=== PATIENT | male | born 1990 | race Asian ===

== ENCOUNTER 2017-10-12 21:14 | Emergency (ER) | payer OTHER, MEDICAID, SELFPAY ==
[2017-10-12 21:21] VITALS: BP 114/78; PULSE 85; RESP 14; TEMP 36.3; O2SAT 100
[2017-10-12 23:13] VITALS: BP 92/66; PULSE 77; RESP 14; O2SAT 96
[2017-10-12 23:49] LABS: Add Manual Diff / Slide Review NO; Basophils Percent Auto 0.1 % (0-2); Eosinophils Percent Auto 0.1 % (2-4); Hematocrit 42.8 % (41-53); Hemoglobin 14.6 g/dL (13.5-17.5); Lymphocytes Percent Auto 11.3 % (25-40); Mean Corpuscular HGB Conc 34.2 % (30-36); Mean Corpuscular Hemoglobin 30.4 PG (26-34); Mean Corpuscular Volume 88.8 fL (80-100); Monocytes Percent Auto 9.2 % (3-14); Neutrophils Absolute Auto 3500 /uL (3000-5900); Neutrophils Percent Auto 79.3 % (50-75); Platelet Count 151 X10^3/uL (150-400); Red Blood Cell Count 4.81 X10^6/uL (4.5-5.9); Red Cell Distribution Width 13.6 % (11.6-14.8); White Blood Cell Count 4.5 X10^3/uL (4.5-11.0)
[2017-10-12 23:50] LABS: INR 1.1 (0.9-1.3); Prothrombin Time 11.8 SECONDS (10.1-12.7)
[2017-10-12 23:53] LABS: PTT Partial Thromboplastin Tim 26 SECONDS (26.4-36.2)
[2017-10-12] MEDS: SODIUM CHLORIDE 0.9% 1,000 ML 1000 ML IV (23:55)
[2017-10-12] MEDS: ONDANSETRON 4 MG/2 ML INJ IV (23:55)
[2017-10-12 23:57] LABS: Alanine Aminotransferase 196 IU/L (21-72); Albumin Globulin Ratio 1.5 (1.0-2.8); Alkaline Phosphatase 116 U/L (38-126); Aspartate Aminotransferase 135 IU/L (17-59); BUN Creatinine Ratio 11.4 (6-22); Bilirubin Total 0.4 mg/dL (0.2-1.3); Calcium 8.9 mg/dL (8.4-10.2); Estimated Glomerular Filt Rate > 60.0 mL/min (>60); Globulin 2.7 g/dL (1.7-4.1); Glucose 91 mg/dL (70-100); HEMOLYSIS < 15 (0-50); Lipase 43 U/L (23-300); Potassium 3.9 mmol/L (3.4-5.1); Sodium 143 mmol/L (137-145); Total Protein 6.7 g/dL (6.3-8.2)
[2017-10-13 00:06] VITALS: BP 112/83; PULSE 74; RESP 16; O2SAT 100
--- NOTE | 2017-10-13 00:37 | ED_ITS ---
HPI - Nausea/Vomiting/Diarrhea General Chief complaint: Nausea/Vomiting/Diarrhea Stated complaint: STOMACH ISSUES, COUGH Time Seen by Provider: 10/13/17 00:22 Source: patient and family Mode of arrival: ambulatory Limitations: no limitations History of Present Illness HPI Narrative: Patient is a 27-year-old male who presents with multiple episodes of diffuse watery diarrhea. Says it started today around 6:00 a.m.. He got some at abdominal cramping. He feels nauseated at times but no vomiting. No fever or chills. He denies any recent travel or camping. He works from home has not been exposed to anything. MD complaint: diarrhea Related Data Previous Rx's Medication Instructions Recorded ondansetron [Zofran ODT] 4 mg PO Q6H #10 tab 10/13/17 Allergies Allergy/AdvReac Type Severity Reaction Status Date / Time No Known Drug Allergies Allergy Verified 10/12/17 21:24 Review of Systems Review of Systems All systems reviewed & are unremarkable except as noted in HPI and below Constitutional Denies chills, Denies fever(s), Denies lethargy and Denies weakness Cardiovascular Denies chest pain, Denies irregular heart rhythm, Denies lightheadedness, Denies palpitations, Denies dyspnea, Denies dyspnea on exertion and Denies orthopnea Respiratory Denies cough, Denies dyspnea, Denies dyspnea on exertion and Denies wheezing Gastrointestinal Gastrointestinal: Reports system reviewed and no additional complaints, except as docu Musculoskeletal Denies back pain, Denies muscle weakness, Denies numbness and Denies tingling Integumentary/Breasts Denies pruritus, Denies erythema, Denies rash and Denies wounds Neurologic Denies numbness, Denies tingling and Denies weakness Endocrine Denies palpitations Allergic/Immunologic Denies wheezing PFSH Medical History Patient denies medical problems (Acute) Family History Father Age: 51 H/O knee surgery Social History Smoking Status: Never smoker Exam Narrative Exam Narrative: GENERAL: The weak young male HEENT: Head atraumatic,EOMI, pupils reactive, face symmetric, dry mucous membranes CARDIOVASCULAR: Regular rate and rhythm without murmurs, rubs or gallops. RESPIRATORY: Breath sounds equal bilaterally, no wheezes rales or rhonchi. ABDOMEN: Soft, nontender. Normoactive bowel sounds all 4 quadrants. No guarding or rebound. : No CVA tenderness EXTREMITIES: Normal range of motion, no clubbing or edema. Neurovascularly intact NEUROLOGICAL: Alert and oriented x4.Normal gait and speech. Cranial nerves II through XII grossly intact. [Good [id number], good bdlf-qu-[id number], strength equal bilaterally, no dysarthria or aphasia, sensation in tact to soft touch bilaterally, no visual changes, no facial droop] SKIN: Warm, dry, no laceration, no petechiae, no rashes or lesions. Initial Vital Signs Initial Vital Signs: Vital Signs Temperature 97.4 F L 10/12/17 21:21 Pulse Rate 85 10/12/17 21:21 Respiratory Rate 14 10/12/17 21:21 Blood Pressure 114/78 10/12/17 21:21 Pulse Oximetry 100 10/12/17 21:21 Course Orders Ordered: ED Orders 10/12/17 23:22 EKG-12 Lead Stat 10/12/17 23:37 Complete Blood Count AUTO DIFF Stat Comprehensive Metabolic Panel Stat Lipase Stat Partial Thromboplastin Time Stat Prothrombin Time INR Stat 10/13/17 00:00 Hepatitis Acute Panel Stat 10/13/17 00:01 GI Panel Stat 10/13/17 01:13 Stool Culture Stat Discontinued Medications Sodium Chloride (Normal Saline 0.9%) 1,000 mls @ 1,000 mls/hr IV BOLUS ONE Stop: 10/13/17 00:20 Last Infusion: 10/13/17 01:02 Dose: 0 mls/hr Admin: 10/12/17 23:55 Dose: 1,000 mls/hr Sodium Chloride (Normal Saline 0.9%) 1,000 mls @ 1,000 mls/hr IV BOLUS ONE Stop: 10/13/17 01:34 Last Admin: 10/13/17 01:03 Dose: 1,000 mls/hr Ondansetron HCl (Zofran) 4 mg IV NOW ONE Stop: 10/12/17 23:22 Last Admin: 10/12/17 23:55 Dose: 4 mg Vital Signs - 8 hr 10/12/17 23:13 10/13/17 00:06 10/13/17 01:00 Pulse Rate 77 74 80 Respiratory Rate 14 16 14 Blood Pressure [Right Arm] 92/66 112/83 H 95/69 Pulse Oximetry 96 100 98 10/13/17 01:22 Pulse Rate 80 Respiratory Rate 20 Blood Pressure [Right Arm] 95/69 Pulse Oximetry 97 MDM - Nausea/Vomiting/Diarrhea Differential Diagnosis Likely traveler's diarrhea, food poisoning, gastroenteritis and dehydration Lab Data Attestation: I reviewed the patient's lab results. Result diagrams: 10/12/17 23:37 10/12/17 23:37 Lab Results 10/12/17 10/12/17 10/12/17 Range/Units 23:37 23:37 23:37 WBC 4.5 (4.5-11.0) X10^3/uL RBC 4.81 (4.5-5.9) X10^6/uL Hgb 14.6 (13.5-17.5) g/dL Hct 42.8 (41-53) % MCV 88.8 (80-100) fL MCH 30.4 (26-34) PG MCHC 34.2 (30-36) % RDW 13.6 (11.6-14.8) % Plt Count 151 (150-400) X10^3/uL Neut % (Auto) 79.3 H (50-75) % Lymph % (Auto) 11.3 L (25-40) % Shasta % (Auto) 9.2 (3-14) % Eos % (Auto) 0.1 L (2-4) % Baso % (Auto) 0.1 (0-2) % Neut # (Auto) 3500 (0295-3646) /uL PT 11.8 (10.1-12.7) SECONDS INR 1.1 (0.9-1.3) APTT 26 L (26.4-36.2) SECONDS Sodium 143 (137-145) mmol/L Potassium 3.9 (3.4-5.1) mmol/L Chloride 103.0 (98-107) mmol/L Carbon Dioxide 28.0 (22-32) mmol/L BUN 8.0 L (9-20) mg/dL Creatinine 0.70 (0.66-1.25) mg/dL Estimated GFR > 60.0 (>60) mL/min BUN/Creatinine Ratio 11.4 (6-22) Glucose 91 (70-100) mg/dL Calcium 8.9 (8.4-10.2) mg/dL Total Bilirubin 0.4 (0.2-1.3) mg/dL AST 135 H (17-59) IU/L ALT 196 H (21-72) IU/L Alkaline Phosphatase 116 (38-126) U/L Total Protein 6.7 (6.3-8.2) g/dL Albumin 4.0 (3.5-5.0) g/dL Globulin 2.7 (1.7-4.1) g/dL Albumin/Globulin Ratio 1.5 (1.0-2.8) Lipase 43 (23-300) U/L Stool Aeromonas Cult (Not Detect) Stl C. cayetanensis PCR (Not Detect) Stool Rotavirus (PCR) (Not Detect) Stool Adenovirus (PCR) (Not Detect) Stool Astrovirus (PCR) (Not Detect) Stool Cryptosporidium PCR (Not Detect) Stl E.coli Shiga Tox PCR (Not Detect) St Sh/Enteroin Ecoli PCR (Not Detect) Stool E coli O157 PCR Stl Enterotoxigenic E PCR (Not Detect) Stool EPEC (PCR) (Not Detect) Stl E. histolytica PCR (Not Detect) Stool Giardia Lamblia PCR (Not Detect) Stl P. shigelloides PCR (Not Detect) St Y.enterocolitica PCR (Not Detect) Stool Vibrio (PCR) (Not Detect) Stl Vibrio cholerae PCR (Not Detect) Stl Enteroaggr Ecoli PCR (Not Detect) Stl Norovirus GI/GII PCR (Not Detect) Campylobacter (PCR) (Not Detect) C. difficile Tox (PCR) (Not Detect) Salmonella (PCR) (Not Detect) 10/13/17 Range/Units 00:01 WBC (4.5-11.0) X10^3/uL RBC (4.5-5.9) X10^6/uL Hgb (13.5-17.5) g/dL Hct (41-53) % MCV (80-100) fL MCH (26-34) PG MCHC (30-36) % RDW (11.6-14.8) % Plt Count (150-400) X10^3/uL Neut % (Auto) (50-75) % Lymph % (Auto) (25-40) % Shasta % (Auto) (3-14) % Eos % (Auto) (2-4) % Baso % (Auto) (0-2) % Neut # (Auto) (0050-2957) /uL PT (10.1-12.7) SECONDS INR (0.9-1.3) APTT (26.4-36.2) SECONDS Sodium (137-145) mmol/L Potassium (3.4-5.1) mmol/L Chloride (98-107) mmol/L Carbon Dioxide (22-32) mmol/L BUN (9-20) mg/dL Creatinine (0.66-1.25) mg/dL Estimated GFR (>60) mL/min BUN/Creatinine Ratio (6-22) Glucose (70-100) mg/dL Calcium (8.4-10.2) mg/dL Total Bilirubin (0.2-1.3) mg/dL AST (17-59) IU/L ALT (21-72) IU/L Alkaline Phosphatase (38-126) U/L Total Protein (6.3-8.2) g/dL Albumin (3.5-5.0) g/dL Globulin (1.7-4.1) g/dL Albumin/Globulin Ratio (1.0-2.8) Lipase (23-300) U/L Stool Aeromonas Cult Awaiting culture res (Not Detect) Stl C. cayetanensis PCR Not detected (Not Detect) Stool Rotavirus (PCR) Not detected (Not Detect) Stool Adenovirus (PCR) Not detected (Not Detect) Stool Astrovirus (PCR) Detected H (Not Detect) Stool Cryptosporidium PCR Not detected (Not Detect) Stl E.coli Shiga Tox PCR Not detected (Not Detect) St Sh/Enteroin Ecoli PCR Not detected (Not Detect) Stool E coli O157 PCR Not Reportable Stl Enterotoxigenic E PCR Not detected (Not Detect) Stool EPEC (PCR) Not detected (Not Detect) Stl E. histolytica PCR Not detected (Not Detect) Stool Giardia Lamblia PCR Not detected (Not Detect) Stl P. shigelloides PCR Not detected (Not Detect) St Y.enterocolitica PCR Not detected (Not Detect) Stool Vibrio (PCR) Not detected (Not Detect) Stl Vibrio cholerae PCR Not detected (Not Detect) Stl Enteroaggr Ecoli PCR Detected H (Not Detect) Stl Norovirus GI/GII PCR Not detected (Not Detect) Campylobacter (PCR) Not detected (Not Detect) C. difficile Tox (PCR) Not detected (Not Detect) Salmonella (PCR) Not detected (Not Detect) MDM Narrative Medical decision making narrative: The patient only had 1 episode of diarrhea while in the ED. He is tolerating oral fluids. His stool culture is positive for E coli which is not hemorrhagic and gastro virus. At this time no antibiotics are indicated. Discussed treatment plan and symptomatic conservative treatment with patient. He agrees and he understands. All questions have been addressed. Discharge Plan Departure Patient Disposition: Home, Self-Care Clinical Impression: Gastroenteritis, Abnormal liver enzymes Discharge Date/Time: 10/13/17 02:06 Interventions: ED Discharge Assessment Last Done: 10/13/17 02:05 Instructions: DI for Viral Gastroenteritis -- Adult, DI for Bacterial Gastroenteritis -- Adult Activity Restrictions/Additional Instructions: *You have been diagnosed with gastroenteritis *What to do: Increase fluid intake with Gatorade or Gatorade like substance, diarrhea should start to slow down *Take medications as directed -Zofran every 4-6 hours if needed for nausea or vomiting *Follow up with your primary care provider in 2-3 days *Return to ER if you should have bloody stool, increase to stool or vomiting inability to tolerate fluids or any new, worsening or concerning symptoms Prescriptions: New ondansetron [Zofran ODT] 4 mg tablet,disintegrating 4 mg PO Q6H Qty: 10 RF: 0 Stand Alone Forms: Work/School Restrictions
[2017-10-13 01:00] VITALS: BP 95/69; PULSE 80; RESP 14; O2SAT 98
[2017-10-13] MEDS: SODIUM CHLORIDE 0.9% 1,000 ML 1000 ML IV (01:03)
[2017-10-13 01:22] VITALS: BP 95/69; PULSE 80; RESP 20; O2SAT 97
[2017-10-13 01:32] LABS: Campylobacter Not Detected (Not Detect); Clostridium difficile toxin AB Not Detected (Not Detect); Enteroaggregative E.coli Detected (Not Detect); Enteropathogenic E.coli Not Detected (Not Detect); Enterotoxigenic E.coli It/st Not Detected (Not Detect); Plesiomonsa shigelloides Not Detected (Not Detect); Salmonella Not Detected (Not Detect); Shiga-like toxin-prod E.coli Not Detected (Not Detect); Vibrio Not Detected (Not Detect); Vibrio cholerae Not Detected (Not Detect); Yersinia enterocolitica Not Detected (Not Detect)
[2017-10-13 01:33] LABS: Adenovirus F 40/41 Not Detected (Not Detect); Astrovirus Detected (Not Detect); Cryptosporidium Not Detected (Not Detect); Cyclospora cayetanensis Not Detected (Not Detect); Entamoeba histolytica Not Detected (Not Detect); Giardia lamblia Not Detected (Not Detect); Norovirus GI/GII Not Detected (Not Detect); Rotavirus A Not Detected (Not Detect); Shigella/Enteroinvasive E.coli Not Detected (Not Detect)
[2017-10-17 10:40] LABS: Hepatitis A Antibody IgM NONREACTIVE; Hepatitis Acute Panel Interp 0.01; Hepatitis B Core Antibody IgM NONREACTIVE; Hepatitis B Surface Antigen NONREACTIVE; Hepatitis C Antibody NONREACTIVE
== END 2017-10-13 02:06 | disposition home or self-care (01) ==
PROVIDERS: Emergency Provider Emergency Medicine; PCP Family Medicine
DX: K52.9 Noninfective gastroenteritis and colitis, unspecified (principal); R74.8 Abnormal levels of other serum enzymes
CPT/HCPCS: 36591; 80053; 80074; 81003; 83690; 85025; 85610; 85730; 87507; 93005; 96361; 96374; 99284; J2405

== ENCOUNTER → 2017-10-17 16:57 | Outpatient (CLI) | payer OTHER, MEDICAID, SELFPAY ==
[2017-10-17 19:10] LABS: Alanine Aminotransferase 192 IU/L (21-72); Aspartate Aminotransferase 46 IU/L (17-59)
== END ==
PROVIDERS: PCP Family Medicine; Visit Provider Family Medicine
DX: K52.9 Noninfective gastroenteritis and colitis, unspecified (principal); R74.8 Abnormal levels of other serum enzymes
CPT/HCPCS: 36415; 84450; 84460

== ENCOUNTER → 2018-02-02 11:13 | Outpatient (CLI) | payer OTHER, MEDICAID, SELFPAY ==
[2018-02-02 12:23] LABS: Add Manual Diff / Slide Review NO; Basophils Percent Auto 0.5 % (0-2); Eosinophils Percent Auto 1.1 % (2-4); Hematocrit 42.4 % (41-53); Hemoglobin 14.2 g/dL (13.5-17.5); Lymphocytes Percent Auto 28.5 % (25-40); Mean Corpuscular HGB Conc 33.5 % (30-36); Mean Corpuscular Hemoglobin 30.3 PG (26-34); Mean Corpuscular Volume 90.3 fL (80-100); Monocytes Percent Auto 9.7 % (3-14); Neutrophils Absolute Auto 2200 /uL (3000-5900); Neutrophils Percent Auto 60.2 % (50-75); Platelet Count 200 X10^3/uL (150-400); Red Cell Distribution Width 13.6 % (11.6-14.8); White Blood Cell Count 3.6 X10^3/uL (4.5-11.0)
[2018-02-02 12:55] LABS: Alanine Aminotransferase 89 IU/L (21-72); Aspartate Aminotransferase 77 IU/L (17-59)
[2018-02-02 13:04] LABS: C-Reactive Protein Quant < 0.5 mg/dL (<1.0)
== END ==
PROVIDERS: Registered Nurse; PCP Family Medicine; Visit Provider Family Medicine
DX: K58.9 Irritable bowel syndrome, unspecified (principal); R74.8 Abnormal levels of other serum enzymes
CPT/HCPCS: 36415; 84450; 84460; 85025; 86140

== ENCOUNTER 2018-06-05 13:31 | Emergency (ER) | payer SELFPAY ==
[2018-06-05 13:45] VITALS: BP 105/72; PULSE 68; RESP 14; TEMP 36.7; O2SAT 98; BMI 22.3
--- NOTE | 2018-06-05 14:11 | PC.NURSE ---
Pt has been coughing frequently for 1 week. Has roommate with similar symptoms. Denies fever, chills, or any other symptoms. He has vomited yesterday, due to coughing so hard. Denies nausea. Talking in full sentences, no increased work of breathing noted.
--- NOTE | 2018-06-05 14:52 | ED_ITS ---
HPI - URI/Sore Throat <Oneida Fung PA-C - Last Filed: 06/05/18 22:05> General Chief Complaint: Upper Respiratory Symptoms Stated Complaint: COUGH, THROWING UP, CHEST TIGHT W/COUGH Time Seen by Provider: 06/05/18 15:01 Source: patient Mode of arrival: ambulatory Limitations: no limitations History of Present Illness HPI Narrative: This 28-year-old male comes in due to one-week history of dry cough. He states that he coughs so hard at times he has dry heaves or vomits if he tries to drink water. He states that it is hard to breathe during coughing spells, otherwise he denies any dyspnea. He does not have any ongoing nausea or vomiting. He states his abdominal muscles are sore from coughing, not having any chest pain. He denies any wheeze. He denies any fever, chills, sweats. He denies any sinus symptoms, earache, sore throat or body aches. He states that his roommate had similar symptoms prior to his developing this cough. Related Data Previous Rx's Medication Instructions Recorded promethazine-codeine 5 ml PO Q6H PRN #118 ml 06/05/18 Allergies Allergy/AdvReac Type Severity Reaction Status Date / Time No Known Drug Allergies Allergy Verified 06/05/18 13:48 Review of Systems <SHAWNA Beckwith Last Filed: 06/05/18 22:05> Review of Systems All systems reviewed & are unremarkable except as noted in HPI and below PFSH <SHAWNA Beckwith Last Filed: 06/05/18 22:05> Comment: Moderate EtOH Exam <SHAWNA Beckwith Last Filed: 06/05/18 22:05> Narrative Exam Narrative: GENERAL APPEARANCE: Patient sleeping comfortably HEAD: No sinus TTP. EYES: PERRL, EOMI. EARS: Normal auditory canals, TMS intact with normal light reflexes. ORAL CAVITY: Normal oropharynx. THROAT: Clear. NECK/THYROID: Neck supple, full range of motion, no cervical lymphadenopathy. LUNGS: Clear to auscultation bilaterally, no cough on exam. HEART: RRR without murmur, nl S1, S2, no S3 or S4. DERMATOLOGIC: No exanthem Initial Vital Signs Initial Vital Signs: Vital Signs Temperature 98.0 F 06/05/18 13:45 Pulse Rate 68 06/05/18 13:45 Respiratory Rate 14 06/05/18 13:45 Blood Pressure 105/72 06/05/18 13:45 Pulse Oximetry 98 06/05/18 13:45 <Mignon Fraga DO - Last Filed: 06/09/18 08:09> Initial Vital Signs Initial Vital Signs: Vital Signs Temperature 98.0 F 06/05/18 13:45 Pulse Rate 68 06/05/18 13:45 Respiratory Rate 14 06/05/18 13:45 Blood Pressure 105/72 06/05/18 13:45 Pulse Oximetry 98 06/05/18 13:45 Course <Oneida Fung PA-C - Last Filed: 06/05/18 22:05> Additional Information: Patient is comfortably while here. Advised likely viral infection given his roommate had similar symptoms prior, and should avoid exposures in working until cough is resolved. Also advised given some post- tussive vomiting episode if symptoms persist he does need to follow up with his PCP and consider testing for pertussis. Vital Signs - 8 hr 06/05/18 15:26 Pulse Rate 65 Respiratory Rate 16 Blood Pressure 136/93 H Pulse Oximetry 97 <Mignon Fraga DO - Last Filed: 06/09/18 08:09> Vital Signs - 8 hr 06/05/18 15:26 Pulse Rate 65 Respiratory Rate 16 Blood Pressure 136/93 H Pulse Oximetry 97 Discharge Plan Departure Patient Disposition: Home Clinical Impression: Bronchitis Discharge Date/Time: 06/05/18 15:30 Interventions: ED Discharge Assessment Last Done: 06/05/18 15:26 Instructions: DI for Acute Bronchitis Activity Restrictions/Additional Instructions: The vast majority of coughs like this (bronchitis, or chest cold) are viruses, and 10 to get better on their own within 10-14 days. Please stay off of work until your cough is better as you could spread the infection. I have given you a prescription for cough syrup to help you get some rest and sleep. You can take that as needed, but do not drive. Also add [id number] cetirizine ( Zyrtec) 10 mg once daily to help with drainage which may increase your cough. You should return if you have acutely worsening symptoms, as we talked about. Otherwise, please follow-up with your PCP if you are not getting better within the next week as she may want to test you for pertussis. Prescriptions: New promethazine-codeine 6.25-10 mg/5 mL syrup 5 ml PO Q6H PRN (Reason: cough) Qty: 118 RF: 0 Referrals: Chantelle Hall MD [Primary Care Provider] - Stand Alone Forms: Work Release Note <Mignon Fraga DO - Last Filed: 06/09/18 08:09> Cosign ED Attending Almaature Attestation: I was immediately available in the department for consultation. Documentation has been reviewed. I agree with assessment and plan.
[2018-06-05 15:26] VITALS: BP 136/93; PULSE 65; RESP 16; O2SAT 97
== END 2018-06-05 15:30 | disposition home or self-care (01) ==
PROVIDERS: Emergency Provider Internal Medicine; PCP Family Medicine
DX: J40 Bronchitis, not specified as acute or chronic (principal)
CPT/HCPCS: 99282

== ENCOUNTER 2018-08-20 02:01 | Emergency (ER) | payer SELFPAY ==
[2018-08-20 02:10] VITALS: BP 106/66; PULSE 65; RESP 18; TEMP 36.9; O2SAT 98; BMI 20.9
--- NOTE | 2018-08-20 02:12 | ED_ITS ---
HPI - Extremity Injury (Lower) General Chief Complaint: Extremity Injury, Lower Stated Complaint: missed step and twisted right ankle Time Seen by Provider: 08/20/18 02:04 Source: patient Mode of arrival: wheelchair Limitations: no limitations History of Present Illness HPI Narrative: Otherwise healthy 28-year-old male here for evaluation of right ankle injury. Patient states that he was at a restaurant when he was walking off the dance floor and missed a step. He stated that he rolled his right ankle. Was able to ambulate on afterwards however had quite a bit of discomfort. Minimal swelling. Related Data Previous Rx's Medication Instructions Recorded promethazine-codeine 5 ml PO Q6H PRN #118 ml 06/05/18 Allergies Allergy/AdvReac Type Severity Reaction Status Date / Time No Known Drug Allergies Allergy Verified 06/05/18 13:48 Review of Systems Constitutional Denies fever(s) Musculoskeletal Denies tingling Comments: Right ankle pain Integumentary/Breasts Denies rash Neurologic Denies tingling Hematologic/Lymphatic Denies easy bleeding and Denies easy bruising [facility] Medical History Chronic back pain (Chronic 2003) Shoulder pain (Chronic 2004) Social History Smoking Status: Never smoker Exam Initial Vital Signs Initial Vital Signs: Vital Signs Temperature 98.4 F 08/20/18 02:10 Pulse Rate 65 08/20/18 02:10 Respiratory Rate 18 08/20/18 02:10 Blood Pressure 106/66 08/20/18 02:10 Pulse Oximetry 98 08/20/18 02:10 Const General: cooperative, healthy appearing, comfortable, well developed, well groomed and No acute distress Orientation: alert, awake and oriented x3 HENMT Head: normal to inspection and normocephalic Resp Effort & Inspection: normal respiratory effort Cardio Pulses: dorsalis pedis present on the right Skin Lesions: no lesions Rashes: no rashes Neuro Sensory Exam: no sensory deficits noted Extrem Other: No proximal fibular tenderness. Has tenderness to palpation on the lateral malleolus and the lateral aspect of the right foot. Course Orders Ordered: ED Orders 08/20/18 02:13 XR ankle RT min 3V Stat Vital Signs - 8 hr 08/20/18 02:10 Temperature 98.4 F Pulse Rate 65 Respiratory Rate 18 Blood Pressure 106/66 Pulse Oximetry 98 MDM - Extremity Injury (Lower) Imaging Data Ankle x-ray: Attestation: I personally reviewed and interpreted this imaging study as follows: My impression: No fractures, no dislocations, no acute pathology MDM Narrative Medical decision making narrative: Neurovascularly intact. Patient did not want an Jorge L bandage. Was not placed in a splint. Was given crutches for comfort. Was given care instructions return precautions. He expressed understanding and agreement with plan. Discharge Plan Departure Patient Disposition: Home Clinical Impression: Ankle sprain and strain Instructions: DI for Ankle Sprain Activity Restrictions/Additional Instructions: The crutches are for your comfort. You can put pressure on your foot. Keep your foot elevated as much as possible. There could be some bruising around your ankle or on her foot. This happens it is normal. Contact her primary care doctor for follow-up. Prescriptions: No Action promethazine-codeine 6.25-10 mg/5 mL syrup 5 ml PO Q6H PRN (Reason: cough) Qty: 118 RF: 0 Referrals: Chantelle Hall MD [Primary Care Provider] -
--- NOTE | 2018-08-20 02:13 | DI.RAD.S_ITS ---
PROCEDURE: XR ANKLE RT MIN 3V INDICATIONS: Lateral pain after injury TECHNIQUE: 3 views of the ankle were acquired. COMPARISON: None. FINDINGS: Bones: No fractures or dislocations. Ankle mortise is normally aligned. No suspicious bony lesions. Soft tissues: Small tibiotalar joint effusion. Achilles tendon appears normal. IMPRESSION: 1. No fractures. 2. Small tibiotalar joint effusion. Dictated by: Carlee Spencer M.D. on 08/20/2018 at 7:59 Approved by: Carlee Spencer M.D. on 08/20/2018 at 8:00
== END 2018-08-20 02:50 | disposition home or self-care (01) ==
PROVIDERS: Emergency Provider Emergency Medicine; PCP Family Medicine
DX: S93.401A Sprain of unspecified ligament of right ankle, initial encounter (principal)
CPT/HCPCS: 73610; 99282; 99283

== ENCOUNTER 2018-12-30 01:18 | Emergency (ER) | payer SELFPAY ==
[2018-12-30 01:27] VITALS: BP 115/75; PULSE 65; RESP 15; TEMP 36.8; O2SAT 95; BMI 21.3
[2018-12-30] MEDS: ONDANSETRON 4 MG/2 ML INJ IV (01:45)
[2018-12-30] MEDS: SODIUM CHLORIDE 0.9% 1,000 ML 1000 ML IV (01:45)
[2018-12-30] MEDS: PANTOPRAZOLE 40 MG VIAL IV (01:47)
[2018-12-30 01:59] LABS: Add Manual Diff / Slide Review NO; Basophils Absolute Auto 0 /uL (0-100); Basophils Percent Auto 0.6 % (0-2); Eosinophils Absolute Auto 0 /uL (0-450); Eosinophils Percent Auto 0.6 % (2-4); Hematocrit 41.9 % (41-53); Hemoglobin 14.2 g/dL (13.5-17.5); Lymphocytes Absolute Auto 1500 /uL (1100-4500); Lymphocytes Percent Auto 32.6 % (25-40); Mean Corpuscular HGB Conc 33.9 % (30-36); Mean Corpuscular Hemoglobin 30.2 PG (26-34); Mean Corpuscular Volume 89.1 fL (80-100); Monocytes Absolute Auto 400 /uL (0-900); Monocytes Percent Auto 8.7 % (3-14); Neutrophils Absolute Auto 2700 /uL (1500-7000); Neutrophils Percent Auto 57.5 % (50-75); Platelet Count 206 X10^3/uL (150-400); Red Cell Distribution Width 13.7 % (11.6-14.8); White Blood Cell Count 4.7 X10^3/uL (4.5-11.0)
[2018-12-30 02:04] LABS: Alanine Aminotransferase 79 IU/L (21-72); Albumin 4.1 g/dL (3.5-5.0); Albumin Globulin Ratio 1.5 (1.0-2.8); Alkaline Phosphatase 54 U/L (38-126); Aspartate Aminotransferase 54 IU/L (17-59); Bilirubin Total 0.5 mg/dL (0.2-1.3); Blood Urea Nitrogen 14 mg/dL (9-20); Carbon Dioxide 29 mmol/L (22-32); Chloride 105 mmol/L (98-107); Estimated Glomerular Filt Rate > 60.0 mL/min (>60); Globulin 2.7 g/dL (1.7-4.1); Glucose 97 mg/dL (70-100); HEMOLYSIS 24 (0-50); Potassium 4.1 mmol/L (3.4-5.1); Sodium 141 mmol/L (137-145); Total Protein 6.8 g/dL (6.3-8.2)
--- NOTE | 2018-12-30 02:36 | ED_ITS ---
HPI - Abdominal Pain General Chief Complaint: Abdominal Pain Stated Complaint: states stomach problems lots of bowel movements Time Seen by Provider: 12/30/18 01:20 Source: patient and family Mode of arrival: ambulatory Limitations: no limitations History of Present Illness HPI narrative: 28M nonsmoker without significant other medical history presents with his significant other in the chief complaint of nausea, vomiting and multiple episodes of diarrhea over the past few days. He denies any recent travel, exposure to bad food or blood in his stool. He has had no fever chills. He had been on antibiotics for an infection in his leg up until recently. He is not dizzy nor weak or lightheaded MD complaint: abdominal pain Onset (ago): day(s) Pain Consistency: constant Location: diffuse Severity: moderate Quality: cramping Radiation: none Migration to: no migration Relieving factors: nothing Exacerbating factors: nothing Associated symptoms: nausea, vomiting and diarrhea Related Data Previous Rx's Medication Instructions Recorded promethazine-codeine 5 ml PO Q6H PRN #118 ml 06/05/18 Allergies Allergy/AdvReac Type Severity Reaction Status Date / Time No Known Drug Allergies Allergy Verified 06/05/18 13:48 Review of Systems Constitutional Denies chills, Denies fever(s), Denies lethargy and Denies weakness Eyes Denies change in vision, Denies eye discharge, Denies irritation and Denies loss of vision ENT Ears, Nose, Mouth, and Throat: Denies change in voice, Denies neck pain and Denies sore throat Cardiovascular Denies chest pain, Denies irregular heart rhythm, Denies lightheadedness, Denies palpitations, Denies dyspnea, Denies dyspnea on exertion and Denies orthopnea Respiratory Denies cough, Denies dyspnea, Denies dyspnea on exertion and Denies wheezing Gastrointestinal Gastrointestinal: Reports abdominal pain, Denies change in bowel habits, Reports diarrhea, Reports nausea and Reports vomiting Genitourinary Denies hematuria, Denies flank pain, Denies urinary incontinence and Denies urinary urgency Musculoskeletal Denies neck pain Integumentary/Breasts Denies pruritus, Denies erythema, Denies rash and Denies wounds Neurologic Denies confusion, Denies loss of vision and Denies weakness Psychiatric Denies anxiety, Denies confusion, Denies depression, Denies homicidal ideation and Denies suicidal ideation Endocrine Denies palpitations Hematologic/Lymphatic Denies easy bruising Allergic/Immunologic Denies wheezing PFSH Medical History Chronic back pain (Chronic 2003) Shoulder pain (Chronic 2004) Surgical History No history of previous surgery (Resolved 04/04/17) Family History Father Age: 52 H/O knee surgery Mother Stomach problems Chest problem Social History Smoking Status: Never smoker Family History Father Age: 52 H/O knee surgery Mother Stomach problems Chest problem Social History Smoking Status: Never smoker Exam Narrative Exam Narrative: GENERAL: This is a well-nourished, well-developed patient, in mild distress. HEAD: Atraumatic. Normocephalic. No temporal or scalp tenderness. EYES: Pupils equal round and reactive. Extraocular motions intact. No scleral icterus. No injection or drainage. ENT: Nose without bleeding, purulent drainage or septal hematoma. Throat without erythema, tonsillar hypertrophy or exudate. Uvula midline. Airway patent. NECK: Trachea midline. No JVD or lymphadenopathy. Supple, nontender, no menin geal signs. CARDIOVASCULAR: Regular rate and rhythm without murmurs, gallops, or rubs. RESPIRATORY: Clear to auscultation. Breath sounds equal bilaterally. No wheezes, rales, or rhonchi. GASTROINTESTINAL: Abdomen soft, non-tender, nondistended. No hepato- splenomegaly, or palpable masses. No guarding. EXTREMITIES: No clubbing, cyanosis, or edema. No joint tenderness, effusion, or edema noted. BACK: Nontender without deformity or crepitance. No flank tenderness. NEURO: AOx3. SKIN: No rash or erythema. Initial Vital Signs Initial Vital Signs: Vital Signs Temperature 98.2 F 12/30/18 01:27 Pulse Rate 65 12/30/18 01:27 Respiratory Rate 15 12/30/18 01:27 Blood Pressure 115/75 12/30/18 01:27 Pulse Oximetry 95 12/30/18 01:27 Course Orders Ordered: ED Orders 12/30/18 01:45 Complete Blood Count AUTO DIFF Stat Comprehensive Metabolic Panel Stat Ondansetron HCl (Zofran) 4 mg IV Q4HR PRN PRN Reason: Nausea And Vomiting Last Admin: 12/30/18 01:45 Dose: 4 mg Discontinued Medications Sodium Chloride (Normal Saline 0.9%) 1,000 mls @ 1,000 mls/hr IV BOLUS ONE Stop: 12/30/18 02:34 Last Infusion: 12/30/18 02:28 Dose: 0 mls/hr Admin: 12/30/18 01:45 Dose: 1,000 mls/hr Pantoprazole Sodium (Protonix) 40 mg IV NOW ONE Stop: 12/30/18 01:36 Last Admin: 12/30/18 01:47 Dose: 40 mg Reevaluation(s) Reevaluation #1: Movement yet in the department. He has no white count and no blood in his stool. C diff is considered but thought less likely given the above circumstances. Vital Signs - 8 hr 12/30/18 01:27 Temperature 98.2 F Pulse Rate 65 Respiratory Rate 15 Blood Pressure 115/75 Pulse Oximetry 95 MDM - Abdominal Pain Lab Data Result diagrams: 12/30/18 01:45 12/30/18 01:45 Lab Results 12/30/18 12/30/18 Range/Units 01:45 01:45 WBC 4.7 (4.5-11.0) X10^3/uL RBC 4.70 (4.5-5.9) X10^6/uL Hgb 14.2 (13.5-17.5) g/dL Hct 41.9 (41-53) % MCV 89.1 (80-100) fL MCH 30.2 (26-34) PG MCHC 33.9 (30-36) % RDW 13.7 (11.6-14.8) % Plt Count 206 (150-400) X10^3/uL Neut % (Auto) 57.5 (50-75) % Lymph % (Auto) 32.6 (25-40) % Wythe % (Auto) 8.7 (3-14) % Eos % (Auto) 0.6 L (2-4) % Baso % (Auto) 0.6 (0-2) % Neut # (Auto) 2700 (7626-8206) /uL Lymph # (Auto) 1500 (9432-2560) /uL Wythe # (Auto) 400 (0-900) /uL Eos # (Auto) 0 (0-450) /uL Baso # (Auto) 0 (0-100) /uL Sodium 141 (137-145) mmol/L Potassium 4.1 (3.4-5.1) mmol/L Chloride 105 (98-107) mmol/L Carbon Dioxide 29 (22-32) mmol/L BUN 14 (9-20) mg/dL Creatinine 0.70 (0.66-1.25) mg/dL Estimated GFR > 60.0 (>60) mL/min BUN/Creatinine Ratio 20.0 (6-22) Glucose 97 (70-100) mg/dL Calcium 10.0 (8.4-10.2) mg/dL Total Bilirubin 0.5 (0.2-1.3) mg/dL AST 54 (17-59) IU/L ALT 79 H (21-72) IU/L Alkaline Phosphatase 54 (38-126) U/L Total Protein 6.8 (6.3-8.2) g/dL Albumin 4.1 (3.5-5.0) g/dL Globulin 2.7 (1.7-4.1) g/dL Albumin/Globulin Ratio 1.5 (1.0-2.8) Discharge Plan Departure Patient Disposition: Home Clinical Impression: Diarrhea Instructions: Diarrhea Activity Restrictions/Additional Instructions: 1. Drink plenty of fluids with frequent small sips. 2. For the next 24 hours a clear liquid diet is advised. After that please employ a brat diet which would include bananas, rice, apples, toast. 3. Please take medications as directed. 4. Please follow-up with your doctor in the next 1-2 days. Call the office for an appointment. 5. Please return to the emergency Department for any worsening or persistent symptoms, such as increasing pain or fever. Prescriptions: No Action promethazine-codeine 6.25-10 mg/5 mL syrup 5 ml PO Q6H PRN (Reason: cough) Qty: 118 RF: 0 Referrals: Chantelle Hall MD [Primary Care Provider] -
[2018-12-30 02:51] VITALS: BP 106/69; PULSE 60; RESP 15; O2SAT 95
== END 2018-12-30 03:01 | disposition home or self-care (01) ==
PROVIDERS: Emergency Provider Emergency Medicine; PCP Family Medicine
DX: R19.7 Diarrhea, unspecified (principal)
CPT/HCPCS: 36591; 80053; 85025; 96361; 96374; 96375; 99283; 99284; C9113; J2405

== ENCOUNTER 2019-05-10 08:07 | Emergency (ER) | payer SELFPAY ==
[2019-05-10 08:12] VITALS: BP 123/86; PULSE 77; RESP 16; TEMP 36.8; O2SAT 97; BMI 24.0
--- NOTE | 2019-05-10 08:15 | ED_ITS ---
HPI - URI/Sore Throat General Chief Complaint: Upper Respiratory Symptoms Stated Complaint: TROUBLE SWALLOWING,STUFF STUCK IN THROAT Time Seen by Provider: 05/10/19 08:15 Source: patient Mode of arrival: Ambulatory Limitations: no limitations History of Present Illness HPI Narrative: 29-year-old male comes to the emergency department states he feels like something is stuck in his throat. Patient states early this morning he was eating chicken wings about 2:00 a.m. in the morning. He states about 20 minutes later he felt some irritation or pain in his chest. He states that he could really sleep all night felt irritated the whole time. He was able to drink liquids and didn't have any vomiting or difficulty keeping liquids down. He has not tried any solids as he feels like they might get stuck. He has been having these symptoms on and off since Thanksgiving what feels like things might be getting stuck but then will past. He to try drinking cold Coke a jumping on his heels but without success. He denies fevers. He denies vomiting. He denies shortness of breath. He denies any changes are new issues with bowel movements. No urinary problems. He has been taking antibiotics for a toe infection which they think might be fungal. He is otherwise healthy, no prior medical issues. No prior surgeries. Patient is not allergic to any medications. He does not smoke tobacco, occasional alcohol. No illicit. Related Data Previous Rx's Medication Instructions Recorded promethazine-codeine 5 ml PO Q6H PRN #118 ml 06/05/18 Allergies Allergy/AdvReac Type Severity Reaction Status Date / Time No Known Drug Allergies Allergy Verified 05/10/19 08:14 Review of Systems Review of Systems ROS Unobtainable: All systems reviewed & are unremarkable except as noted in HPI and below Patient History Medical History Chronic back pain (Chronic 2003) Shoulder pain (Chronic 2004) Surgical History No history of previous surgery (Resolved 04/04/17) Social History Smoking Status: Never smoker Smoking Status: Never smoker alcohol intake frequency: holidays/special occasions only Substance Use Type: does not use Exam Narrative Exam Narrative: GENERAL: Alert and oriented x three, well-nourished male in no acute distress. HEENT: Head normocephalic, atraumatic, EOMI, pupils reactive, face symmetric, moist mucous membranes NECK: Supple, full range of motion, throat is clear. Normal voice. No stridor or muffled voice. CARDIOVASCULAR: Regular rate and rhythm without murmurs, rubs or gallops. Chest is nontender to palpation. RESPIRATORY: Breath sounds equal bilaterally, no wheezes rales or rhonchi. ABDOMEN: Soft, nontender. Normoactive bowel sounds all 4 quadrants. No guarding or rebound, rigidity, no mass : No CVA tenderness EXTREMITIES: Normal range of motion, no clubbing or edema. Neurovascularly intact NEUROLOGICAL: Cranial nerves II through XII grossly intact. Moving all extremities SKIN: Warm, dry, no petechiae, no rashes or lesions. Initial Vital Signs Initial Vital Signs: Vital Signs Temperature 98.3 F 05/10/19 08:12 Pulse Rate 77 05/10/19 08:12 Respiratory Rate 16 05/10/19 08:12 Blood Pressure 123/86 05/10/19 08:12 Pulse Oximetry 97 05/10/19 08:12 Course Orders Ordered: ED Orders 05/10/19 08:28 XR chest 1V Stat Discontinued Medications Al Hydrox/Mg Hydrox/Simethicone 20 ml/ Lidocaine HCl 15 ml 0 ml PO NOW ONE Stop: 05/10/19 08:58 Last Admin: 05/10/19 09:00 Dose: 35 ml Documented by: ZOYA Vital Signs Vital signs: Vital Signs - 8 hr 05/10/19 08:12 Temperature 98.3 F Pulse Rate 77 Respiratory Rate 16 Blood Pressure 123/86 Pulse Oximetry 97 MDM - URI/Sore Throat Imaging Data Chest x-ray: Radiologist's impression: [address] [address] XRay Report Signed Patient: Lexa Gabriel KMR#: [id number] : 1990Acct:[id number] Age/Sex: 29 / MDate of Service: 05/10/19 Loc: ED Accession Number: [id number] Procedure: XR chest 1V Ordering Provider: Mank,Dione C D.O. PROCEDURE: XR CHEST 1V INDICATIONS: feels like something stuck in throat, able to swallow liquid TECHNIQUE: One view of the chest was acquired. COMPARISON: None. FINDINGS: Surgical changes and devices: None. Lungs and pleura: Lungs are clear. No pleural effusions or pneumothorax. Mediastinum: Mediastinal contours appear normal. Heart size is normal. Bones and chest wall: No suspicious bony lesions. Overlying soft tissues appear unremarkable. IMPRESSION: No acute process. Dictated by: Halie Tavera M.D. on 05/10/2019 at 9:07 Approved by: Halie Tavera M.D. on 05/10/2019 at 9:08 [facility] Narrative Medical decision making narrative: I suspect patient has irritation or abrasion of his esophagus from eating earlier this morning. Patient has not had any tro uble swallowing liquids at home. Able to eat applesauce and then a cheesestick and crackers. Patient does have some irritation with crackers and cheese stick but not difficulty keeping food down. Discussed patient needs to follow up for EGD and given referral or that he can go through primary care. Softer diet and make sure food is well masticated. Patient and family comfortable with plan. Nilson montgomery give a single GI cocktail for comfort. Discharge Plan Departure Patient Disposition: Home Clinical Impression: Esophageal abrasion Discharge Date/Time: 05/10/19 09:29 Instructions: Steakhouse Syndrome Activity Restrictions/Additional Instructions: Follow up with primary care or general surgery for follow up and EGD to evaluate for strictures or narrowing of the esophagus. I would recommend a softer diet and making sure that you chewing her food fully before swallowing. Return to the emergency department if you're having increasing pain, fevers greater 100.4 F, shortness of breath, muffled voice, if you are unable to swallow liquids or your own saliva, if you're unable to keep food down or have persistent vomiting, black or bloody stools or other new or concerning symptoms. Prescriptions: No Action promethazine-codeine 6.25-10 mg/5 mL syrup 5 ml PO Q6H PRN (Reason: cough) Qty: 118 RF: 0 Referrals: Black Miller MD [Physician] - Chantelle Hall MD [Primary Care Provider] -
--- NOTE | 2019-05-10 08:28 | DI.RAD.S_ITS ---
PROCEDURE: XR CHEST 1V INDICATIONS: feels like something stuck in throat, able to swallow liquid TECHNIQUE: One view of the chest was acquired. COMPARISON: None. FINDINGS: Surgical changes and devices: None. Lungs and pleura: Lungs are clear. No pleural effusions or pneumothorax. Mediastinum: Mediastinal contours appear normal. Heart size is normal. Bones and chest wall: No suspicious bony lesions. Overlying soft tissues appear unremarkable. IMPRESSION: No acute process. Dictated by: Halie Tavera M.D. on 05/10/2019 at 9:07 Approved by: Halie Tavera M.D. on 05/10/2019 at 9:08
--- NOTE | 2019-05-10 08:30 | PC.NURSE ---
Patient reports eating wings at 0200 felt like something got stuck. Has been able to handle his secretions. Resp even and unlabored.
[2019-05-10] MEDS: MAG HYDROX/ALUMINUM/SIMETH SUS 20 ML, LIDOCAINE VISCOUS 2% 15 ML PO (09:00)
== END 2019-05-10 09:29 | disposition home or self-care (01) ==
PROVIDERS: Emergency Provider Emergency Medicine; PCP Family Medicine
DX: S27.818A Other injury of esophagus (thoracic part), initial encounter (principal)
CPT/HCPCS: 71045; 99283

== ENCOUNTER 2019-07-05 21:47 | Emergency (ER) | payer SELFPAY ==
[2019-07-05 21:53] VITALS: BP 123/85; PULSE 72; RESP 18; TEMP 36.6; O2SAT 98
--- NOTE | 2019-07-05 22:03 | PC.NURSE ---
has had chronic bilateral great toe pain,redness and swelling.pain in left great toe worse tonight.both great toes are reddened at base.
--- NOTE | 2019-07-05 22:26 | ED.EXTPRO ---
HPI - Extremity Problem General Chief complaint: Extremity Problem,Nontraumatic Stated complaint: lt 1st toe pain Time Seen by Provider: 07/05/19 22:14 Source: patient Mode of arrival: Ambulatory Limitations: no limitations History of Present Illness HPI Narrative: 29-year-old male here for evaluation of left great toenail pain. Patient states that symptoms been going on for the past several months. He has been on multiple doses of antibiotics without any improvement. He arrives today because he is having continued pain. Last course of antibiotics several weeks ago. Related Data Previous Rx's Medication Instructions Recorded promethazine-codeine 5 ml PO Q6H PRN #118 ml 06/05/18 Allergies Allergy/AdvReac Type Severity Reaction Status Date / Time No Known Drug Allergies Allergy Verified 05/10/19 08:14 Review of Systems Constitutional Constitutional: Denies fever(s) Musculoskeletal Comments: Left great toe pain Integumentary/Breasts Comments: Redness around the left great toe Hematologic/Lymphatic Hematologic/Lymphatic: Denies easy bleeding and Denies easy bruising Patient History Medical History Chronic back pain (Chronic 2003) Shoulder pain (Chronic 2004) Social History Smoking Status: Never smoker Smoking Status: Never smoker alcohol intake frequency: holidays/special occasions only Substance Use Type: does not use Exam Initial Vital Signs Initial Vital Signs: Vital Signs Temperature 97.9 F 07/05/19 21:53 Pulse Rate 72 07/05/19 21:53 Respiratory Rate 18 07/05/19 21:53 Blood Pressure 123/85 07/05/19 21:53 Pulse Oximetry 98 07/05/19 21:53 Const General: cooperative, healthy appearing, comfortable and well developed Limitations: mental status not altered Resp Effort & Inspection: normal respiratory effort Cardio Pulses: dorsalis pedis present on the left Skin Other: Patient with redness around the toenail of the left great toe. Also has redness around the toenail of the right great toe. Neuro General: alert and awake Extrem General: capillary refill normal Procedures Nerve Block Nerve Block 1: Time out performed: Yes Local Anesthetic: lidocaine 1% Amount of anesthesia used (mL): 4 Side: left Nerve Blocks: digital Procedure Successful: Yes Patient Tolerated Procedure: Well Complications: none [facility] [place] Procedure Name of Procedure: Ingrown toenail removal Side (if applicable): left Location: Left great toe Time out performed: Yes Technique/Description of procedure performed: Patient was anesthetized with 4 cc of 1% lidocaine without epinephrine. When adequate anesthesia was obtained the toenail was elevated from the nail bed. Toenail was removed. Patient tolerated procedure: Well and No complications Course Orders Ordered: Discontinued Medications Hydrocodone Bitart/Acetaminophen (Vicodin 5/325 Prepack) 1 bottle [facility] [place] Stop: 07/05/19 23:35 Last Admin: 07/06/19 00:00 Dose: 1 bottle Documented by: TRISHA Lidocaine HCl (Xylocaine 1% (Pf)) 4 ml INJ NOW ONE Stop: 07/05/19 22:27 Last Admin: 07/05/19 22:32 Dose: 4 ml Documented by: HARRIET Tramadol HCl (Ultram) 50 mg PO NOW ONE Stop: 07/05/19 23:19 Last Admin: 07/05/19 23:34 Dose: 50 mg Documented by: TRISHA Tramadol HCl (Ultram 50mg Prepack) 1 bottle [facility] [place] [facility] Stop: 07/05/19 23:19 Vital Signs Vital signs: Vital Signs - 8 hr 07/05/19 21:53 07/06/19 00:07 Temperature 97.9 F Pulse Rate 72 79 Respiratory Rate 18 15 Blood Pressure 123/85 127/73 Pulse Oximetry 98 98 MDM - Extremity (Nontraumatic) MDM Narrative Medical decision making narrative: Patient's history and physical exam is consistent with an ingrown toenail. It did appear to involve both sides of the toenail. The entire left great toenail was removed without incident. He also has findings consistent with a right-sided ingrown toenail. I did offer to remove this toenail today as well however the patient would like to hold because he is not having any pain. I feel there is no indication for antibiotics. He was given care instructions and return precautions. Will treat symptoms. Expressed understanding and agreement plan. Discharge Plan Departure Patient Disposition: Home Clinical Impression: Ingrowing toenail of left foot Discharge Date/Time: 07/06/19 00:10 Instructions: DI for Ingrown Toenail Removal Activity Restrictions/Additional Instructions: Expect some oozing from the area. You can change the bandage as needed. You can shower like normal. You can walk like normal. Take the medication as directed. Return to the emergency department for any new or worsening symptoms Prescriptions: No Action promethazine-codeine 6.25-10 mg/5 mL syrup 5 ml PO Q6H PRN (Reason: cough) Qty: 118 RF: 0 Referrals: Chantelle Hall MD [Primary Care Provider] - Stand Alone Forms: Work Release Note
[2019-07-05] MEDS: LIDOCAINE 1% (PF) 4 ML INJ (22:32)
[2019-07-05] MEDS: TRAMADOL 50 MG TABLET PO (23:34)
[2019-07-06] MEDS: HYDROCODONE/ACET 5/325 PREPACK 1 BOTTLE MISC
[2019-07-06 00:07] VITALS: BP 127/73; PULSE 79; RESP 15; O2SAT 98
--- NOTE | 2019-07-06 00:10 | PC.NURSE ---
Placed gauze and coban around toe.
== END 2019-07-06 00:10 | disposition home or self-care (01) ==
PROVIDERS: Emergency Provider Emergency Medicine; PCP Family Medicine
DX: L60.0 Ingrowing nail (principal)
CPT/HCPCS: 11750; 64450; 99283

== ENCOUNTER 2019-08-16 18:04 | Emergency (ER) | payer SELFPAY ==
[2019-08-16 18:10] VITALS: BP 155/90; PULSE 76; RESP 20; TEMP 36.9; O2SAT 100; BMI 23.7
--- NOTE | 2019-08-16 18:20 | PC.NURSE ---
Patient here from home with . Patient has had cough for about a week with a runny nose. Patient denies fever or chills and denies any known exposure to the Lr virus. Patient admits to some brief episodes of diarrhea, but states that stool is semi-soft and not watery. Denies any antibiotic use within the last 6 weeks. Loss of appetite but still able to eat and drink without nausea or emesis. Speaking in full sentences. No respiratory distress noted.
--- NOTE | 2019-08-16 18:55 | DI.RAD.S_ITS ---
PROCEDURE: XR CHEST 2V INDICATIONS: cough TECHNIQUE: 2 views of the chest were acquired. COMPARISON: [facility], [place], XR CHEST 1V, 05/10/2019, 8:35. FINDINGS: Surgical changes and devices: None. Lungs and pleura: Lungs are clear. No pleural effusions or pneumothorax. Mediastinum: Mediastinal contours are normal. Heart size is normal. Bones and chest wall: No suspicious bony abnormalities. Soft tissues appear unremarkable. IMPRESSION: No evidence acute pulmonary process. Dictated by: Krishan Guidry M.D. on 08/16/2019 at 19:21 Approved by: Krishan Guidry M.D. on 08/16/2019 at 19:22
--- NOTE | 2019-08-16 18:59 | ED.URI ---
HPI - URI/Sore Throat <DENNYS Perdomo - Last Filed: 08/16/19 20:01> General Chief Complaint: Upper Respiratory Symptoms Stated Complaint: thinks sinus infection Time Seen by Provider: 08/16/19 18:26 Source: patient Mode of arrival: Family Vehicle Limitations: no limitations History of Present Illness HPI Narrative: The patient is a 29-year-old male nonsmoker with history of ingrown toenail presents with a chief complaint of a cough. He states he had 1 last week for few days, it went away and then he has had a cough for 2 days. He denies any fevers abdominal pain, nausea vomiting sore throat or ear pain. He states he feels like he has a lot of postnasal drip. states he sounds very congested. He states his cough is nonproductive. He feels tired has some muscle aches with coughing. Related Data Previous Rx's Medication Instructions Recorded promethazine-codeine 5 ml PO Q6H PRN #118 ml 06/05/18 Allergies Allergy/AdvReac Type Severity Reaction Status Date / Time No Known Drug Allergies Allergy Verified 08/16/19 18:12 Review of Systems <DENNYS Perdomo - Last Filed: 08/16/19 20:01> Review of Systems Narrative: GENERAL: See HPI HEENT: Denies sinus pain, ear pain, sore throat, difficulty swallowing, dizziness. RESPIRATORY: See HPI CARDIOVASCULAR: Denies chest pain, palpitations, orthopnea, edema, GASTROINTESTINAL: Denies nausea, vomiting, abdominal pain, diarrhea, constipation, melena. : Denies dysuria, frequency, incontinence, hematuria, urinary retention. MUSCULOSKELETAL: denies weakness, joint pain, or bony pain SKIN: Denies rash, skin lesions, or other NEUROLOGIC: Denies weakness, headache, numbness, change in speech, confusion, seizures, incoordination. PSYCHIATRIC: No concerning psychosocial issues. 12 point review of systems is negative except for those stated above Patient History <DENNYS Perdomo - Last Filed: 08/16/19 20:01> Medical History Chronic back pain (Chronic 2003) Shoulder pain (Chronic 2004) Surgical History No history of previous surgery (Resolved 04/04/17) Family History Father Age: 53 H/O knee surgery Mother Stomach problems Chest problem Social History Smoking Status: Never smoker Smoking Status: Never smoker alcohol intake frequency: holidays/special occasions only Substance Use Type: does not use Exam <DENNYS Perdomo - Last Filed: 08/16/19 20:01> Narrative Exam Narrative: GENERAL: This is a well-nourished, well-developed patient, in no acute distress. HEAD: Atraumatic. Normocephalic. No temporal or scalp tenderness. EYES: Pupils equal round and reactive. Extraocular motions intact. No scleral icterus. No injection or drainage. ENT: Nose without bleeding, purulent drainage or septal hematoma. Throat without erythema, tonsillar hypertrophy or exudate. Uvula midline. Airway patent. Bilateral TMs pearly coyle. Cobblestoning noted. NECK: Trachea midline. No JVD or lymphadenopathy. Supple, nontender, no meningeal signs. CARDIOVASCULAR: Regular rate and rhythm RESPIRATORY: Clear to auscultation. Breath sounds equal bilaterally. No wheezes, rales, or rhonchi. No cough. No increased respiratory effort. No accessory muscle use. GASTROINTESTINAL: Abdomen soft, non-tender, nondistended. No hepato-splenomegaly, or palpable masses. No guarding. EXTREMITIES: No clubbing, cyanosis, or edema. No joint tenderness, effusion, or edema noted. BACK: Nontender without deformity or crepitance. No flank tenderness. NEURO: AOx3. SKIN: No rash or erythema on visible skin Initial Vital Signs Initial Vital Signs: Vital Signs Temperature 98.4 F 08/16/19 18:10 Pulse Rate 76 08/16/19 18:10 Respiratory Rate 20 08/16/19 18:10 Blood Pressure 155/90 H 08/16/19 18:10 Pulse Oximetry 100 08/16/19 18:10 <Loc Yeung MD - Last Filed: 08/17/19 18:01> Initial Vital Signs Initial Vital Signs: Vital Signs Temperature 98.4 F 08/16/19 18:10 Pulse Rate 76 08/16/19 18:10 Respiratory Rate 20 08/16/19 18:10 Blood Pressure 155/90 H 08/16/19 18:10 Pulse Oximetry 100 08/16/19 18:10 Course <DENNYS Perdomo - Last Filed: 08/16/19 20:01> Orders Ordered: ED Orders 08/16/19 18:55 XR chest 2V Stat Vital Signs Vital signs: Vital Signs - 8 hr 08/16/19 18:10 Temperature 98.4 F Pulse Rate 76 Respiratory Rate 20 Blood Pressure 155/90 H Pulse Oximetry 100 <Loc Yeung MD - Last Filed: 08/17/19 18:01> Orders Ordered: ED Orders 08/16/19 18:55 XR chest 2V Stat Vital Signs Vital signs: Vital Signs - 8 hr 08/16/19 18:10 Temperature 98.4 F Pulse Rate 76 Respiratory Rate 20 Blood Pressure 155/90 H Pulse Oximetry 100 MDM - URI/Sore Throat <DENNYS Perdomo - Last Filed: 08/16/19 20:01> Imaging Data Chest x-ray: Radiologist's Impression: [address] [place] [id number] XRay Report Signed Patient: Lexa Gabriel KMR#: [id number] : 1990Acct:[id number] Age/Sex: 29 / MDate of Service: 08/16/19 Loc: ED Accession Number: [id number] Procedure: XR chest 2V Ordering Provider: Dione Renee PROCEDURE: XR CHEST 2V INDICATIONS: cough TECHNIQUE: 2 views of the chest were acquired. COMPARISON: [facility], , XR CHEST 1V, 05/10/2019, 8:35. FINDINGS: Surgical changes and devices: None. Lungs and pleura: Lungs are clear. No pleural effusions or pneumothorax. Mediastinum: Mediastinal contours are normal. Heart size is normal. Bones and chest wall: No suspicious bony abnormalities. Soft tissues appear unremarkable. IMPRESSION: No evidence acute pulmonary process. Dictated by: Krishan Guidry M.D. on 08/16/2019 at 19:21 Approved by: Krishan Guidry M.D. on 08/16/2019 at 19:22 MDM Narrative Medical decision making narrative: The patient is a 29-year-old male who presents with a chief complaint of a cough for few days. He is afebrile, has an overall benign exam. He does not want to test for the flu at this point time. He has no shortness of breath, no fever and does not feel as though he is at risk of Covid. I discussed at length a trial of [id number] medications such as Sudafed, Neti pot, Flonase and follow up with primary care provider. Discussed that we do not use antibiotics to treat sinus infection until it is longer than a few days. No pneumonia on chest x-ray. Patient state understanding return precautions of any acute concerns, shortness of breath, follow-up care with primary care provider. Have no questions or concerns upon discharge and state understanding return precautions as well as follow-up care. Discharge Plan Departure Patient Disposition: Home Clinical Impression: Upper respiratory infection Qualifiers: URI type: unspecified viral URI Qualified Code(s): J06.9 - Acute upper respiratory infection, unspecified Discharge Date/Time: 08/16/19 19:47 Instructions: DI for Viral Upper Respiratory Infection -- Adult Activity Restrictions/Additional Instructions: Thank you for trusting us with your care today. Your chest x-ray shows no signs of pneumonia. Please use [id number] remedies at this point time such as Sudafed, Flonase, Jurgen med sinus rinse or Neti pot. Please follow-up with primary care provider in the next few days. Come back to the emergency department for any acute concerns such as significant shortness of breath, concern of heart attack or stroke Prescriptions: No Action promethazine-codeine 6.25-10 mg/5 mL syrup 5 ml PO Q6H PRN (Reason: cough) Qty: 118 RF: 0 Referrals: Chantelle Hall MD [Primary Care Provider] - ED Sign-out <DENNYS Perdomo - Last Filed: 08/16/19 20:01> Cosign ED Attending Jayant Attestation: I was immediately available in the department for consultation. This documentation has been reviewed and I agree with assessment and plan. Supervised by DENNYS Perdomo
== END 2019-08-16 19:47 | disposition home or self-care (01) ==
PROVIDERS: Emergency Provider Nurse Practitioner Family; PCP Family Medicine
DX: J06.9 Acute upper respiratory infection, unspecified (principal); R05 Cough
CPT/HCPCS: 71046; 99281; 99283

== ENCOUNTER 2019-08-27 18:06 | Emergency (ER) | payer SELFPAY ==
[2019-08-27 18:11] VITALS: BP 135/80; PULSE 71; RESP 17; TEMP 36.9; O2SAT 97; BMI 23.7
--- NOTE | 2019-08-27 18:21 | ED.LOWEXIN ---
HPI - Extremity Injury (Lower) <DENNYS Perdomo - Last Filed: 08/27/19 19:12> General Chief Complaint: Extremity Injury, Lower Stated Complaint: RIGHT FOOT BIG TOE NAIL REMOVED Time Seen by Provider: 08/27/19 18:08 Source: patient Mode of arrival: Ambulatory Limitations: no limitations History of Present Illness HPI Narrative: The patient is a 29-year-old male nonsmoker with history of upper respiratory infection who presents with a chief complaint of ?I need my toenail removed.He states he has a history of ingrown toenails, this 1 has been bothering him for the past several months. He states he came into the emergency department today because his parents told him to. He denies any fevers nausea vomiting or diarrhea. Related Data Previous Rx's Medication Instructions Recorded promethazine-codeine 5 ml PO Q6H PRN #118 ml 06/05/18 terbinafine HCl 250 mg PO DAILY #20 tab 08/27/19 Allergies Allergy/AdvReac Type Severity Reaction Status Date / Time No Known Drug Allergies Allergy Verified 08/27/19 18:11 Review of Systems <DENNYS Perdomo - Last Filed: 08/27/19 19:12> Review of Systems Narrative: GENERAL: Denies chills, fatigue, malaise, fever, sweats. HEENT: Denies sinus pain, ear pain, sore throat, difficulty swallowing, dizziness. RESPIRATORY: Denies dyspnea, cough, wheezing, hemoptysis, sputum. CARDIOVASCULAR: Denies chest pain, palpitations, orthopnea, edema, GASTROINTESTINAL: Denies nausea, vomiting, abdominal pain, diarrhea, constipation, melena. : Denies dysuria, frequency, incontinence, hematuria, urinary retention. MUSCULOSKELETAL: See HPI SKIN: See HPI NEUROLOGIC: Denies weakness, headache, numbness, change in speech, confusion, seizures, incoordination. PSYCHIATRIC: No concerning psychosocial issues. 12 point review of systems is negative except for those stated above Patient History <DENNYS Perdomo - Last Filed: 08/27/19 19:12> Medical History Chronic back pain (Chronic 2003) Shoulder pain (Chronic 2004) Surgical History No history of previous surgery (Resolved 04/04/17) Family History Father Age: 53 H/O knee surgery Mother Stomach problems Chest problem Social History Smoking Status: Never smoker Smoking Status: Never smoker alcohol intake frequency: holidays/special occasions only Substance Use Type: does not use Exam <DENNYS Perdomo - Last Filed: 08/27/19 19:12> Narrative Exam Narrative: GENERAL: This is a well-nourished, well-developed patient, in no acute distress HEAD: Atraumatic. Normocephalic. No temporal or scalp tenderness. EYES: Pupils equal round and reactive. Extraocular motions intact. No scleral icterus. No injection or drainage. ENT: Nose without bleeding, purulent drainage or septal hematoma. Throat without erythema, tonsillar hypertrophy or exudate. Uvula midline. Airway patent. NECK: Trachea midline. No JVD or lymphadenopathy. Supple, nontender, no meningeal signs. CARDIOVASCULAR: Regular rate and rhythm RESPIRATORY: No cough. No increased respiratory effort. No accessory muscle use. EXTREMITIES: No clubbing, cyanosis, or edema. No joint tenderness, effusion, or edema noted. BACK: Nontender without deformity or crepitance. No flank tenderness. NEURO: AOx3. SKIN: Right great toenail has a yellow appearance, thickening and splitting of the nail noted. Slight redness around the base of the nail with no other erythema or swelling noted. Initial Vital Signs Initial Vital Signs: Vital Signs Temperature 98.4 F 08/27/19 18:11 Pulse Rate 71 08/27/19 18:11 Respiratory Rate 17 08/27/19 18:11 Blood Pressure 135/80 08/27/19 18:11 Pulse Oximetry 97 08/27/19 18:11 <Yash Darling DO - Last Filed: 08/27/19 22:27> Initial Vital Signs Initial Vital Signs: Vital Signs Temperature 98.4 F 08/27/19 18:11 Pulse Rate 71 08/27/19 18:11 Respiratory Rate 17 08/27/19 18:11 Blood Pressure 135/80 08/27/19 18:11 Pulse Oximetry 97 08/27/19 18:11 Course <TARUN Perdomo-EVERARDO - Last Filed: 08/27/19 19:12> Vital Signs Vital signs: Vital Signs - 8 hr 08/27/19 18:11 Temperature 98.4 F Pulse Rate 71 Respiratory Rate 17 Blood Pressure 135/80 Pulse Oximetry 97 <Yash Darling DO - Last Filed: 08/27/19 22:27> Vital Signs Vital signs: Vital Signs - 8 hr 08/27/19 18:11 Temperature 98.4 F Pulse Rate 71 Respiratory Rate 17 Blood Pressure 135/80 Pulse Oximetry 97 MDM - Extremity Injury (Lower) <BUZZ PerdomoBC - Last Filed: 08/27/19 19:12> MDM Narrative Medical decision making narrative: The patient is a 29-year-old male who presents with a chief complaint of internal problem. He would like times toenail removed. His exam correlates with Onychomycosis thus we elected to initiate topical therapy. I discussed at length the importance of following up with primary care provider, discussed that he may benefit from seeing a cotton bag sewer given his foot problems. Discussed warm water soaks. Discussed coming back to emergency department for any acute concerns. Patient has no questions or concerns upon discharge and states understanding of return precautions as well as follow-up care. Discharge Plan Departure Patient Disposition: Home Clinical Impression: Onychomycosis Discharge Date/Time: 08/27/19 18:57 Instructions: DI for Onychomycosis Activity Restrictions/Additional Instructions: Thank you for trusting us with your care today I sent a prescription for a nail fungus medication to [facility] in [place]. He will need a longer course of this medication, so please follow-up with primary care provider Please follow-up with primary care provider. I also given contact for [facility]. They have podiatrists who specialize in feet. Prescriptions: New terbinafine HCl 250 mg tablet 250 mg PO DAILY Qty: 20 RF: 0 No Action promethazine-codeine 6.25-10 mg/5 mL syrup 5 ml PO Q6H PRN (Reason: cough) Qty: 118 RF: 0 Referrals: [facility] [Provider Group] Chantelle Hall MD [Primary Care Provider] - <Yash Darling DO - Last Filed: 08/27/19 22:27> Cosign ED Attending Cosignature Attestation: I was immediately available in the department for consultation. This documentation has been reviewed and I agree with assessment and plan. Supervised by Yash Darling DO
== END 2019-08-27 18:57 | disposition home or self-care (01) ==
PROVIDERS: Emergency Provider Nurse Practitioner Family; PCP Family Medicine
DX: B35.1 Tinea unguium (principal)
CPT/HCPCS: 99281

== ENCOUNTER 2019-10-31 23:41 | Emergency (ER) | payer OTHER, MEDICAID, SELFPAY ==
[2019-10-31 23:56] VITALS: BP 124/77; PULSE 70; RESP 16; TEMP 36.7; O2SAT 97; BMI 23.7
--- NOTE | 2019-11-01 00:07 | DI.RAD.S_ITS ---
PROCEDURE: XR ELBOW RT MIN 3V INDICATIONS: trauma TECHNIQUE: 3 views of the elbow were acquired. COMPARISON: None. FINDINGS: Bones: No fractures or dislocations. No suspicious bony lesions. Soft tissues: No elbow joint effusion. No suspicious soft tissue calcifications. IMPRESSION: Right elbow without acute fracture or dislocation. Dictated by: James Mendieta M.D. on 11/01/2019 at 7:58 Approved by: James Mendieta M.D. on 11/02/2019 at 11:31
--- NOTE | 2019-11-01 00:08 | DI.CT.S_ITS ---
PROCEDURE: CT CERVICAL SPINE WO CON INDICATIONS: Trauma TECHNIQUE: Noncontrast 3 mm thick sections acquired from the skull base to the T4 level. Sagittal and coronal reformats were then constructed. For radiation dose reduction, the following was used: automated exposure control, adjustment of mA and/or kV according to patient size. COMPARISON: [facility], CT, CT HEAD/BRAIN WO CON, 11/01/2019, 0:07. FINDINGS: Image quality: Excellent. Bones: No fractures or dislocations. Craniocervical junction is intact. There is straightening of cervical lordosis likely related to positioning and/or muscle spasms. Visualized superior ribs are intact. Soft tissues: Prevertebral soft tissues are normal in thickness. No paravertebral hematomas. No apical pneumothoraces. IMPRESSION: Cervical spine without acute traumatic injuries. Straightening of cervical lordosis likely related to positioning and/or concurrent muscle spasms. No discrepancies with preliminary report by overnight radiologist. Dictated by: James Mendieta M.D. on 11/01/2019 at 7:45 Approved by: James Mendieta M.D. on 11/02/2019 at 11:30
--- NOTE | 2019-11-01 00:08 | DI.CT.S_ITS ---
PROCEDURE: CT HEAD/BRAIN WO CON INDICATIONS: Trauma TECHNIQUE: Noncontrast 4.5 mm thick angled axial sections acquired from the foramen magnum to the vertex, with coronal and sagittal reformats. For radiation dose reduction, the following was used: automated exposure control, adjustment of mA and/or kV according to patient size. COMPARISON: None. FINDINGS: Image quality: Excellent. CSF spaces: Basal cisterns are patent. No extra-axial fluid collections. Ventricles are normal in size and shape. Brain: No midline shift. No intracranial masses or hemorrhage. Erwin-white matter interface is normal. Skull and face: Calvarium and visualized facial bones are intact, without suspicious lesions. Sinuses: Visualized sinuses and mastoids are clear. IMPRESSION: CT head without acute intracranial abnormalities, mass, or mass effect. No acute calvarial fractures. No discrepancies with preliminary report by overnight radiologist Dictated by: James Mendieta M.D. on 11/01/2019 at 7:28 Approved by: James Mendieta M.D. on 11/02/2019 at 11:30
--- NOTE | 2019-11-01 00:08 | DI.CT.S_ITS ---
PROCEDURE: CT CHEST ABD PEL W CON INDICATIONS: Trauma TECHNIQUE: After the administration of intravenous contrast, 5 mm thick sections acquired from the lung apices to the symphysis. 2.5 mm thick coronal and sagittal reformats were acquired. Additional 7 mm thick coronal maximum intensity projection (MIP) reformats acquired through the lungs. Optional 10-minute delayed imaging may be performed from the kidneys to the bladder. For radiation dose reduction, the following was used: automated exposure control, adjustment of mA and/or kV according to patient size. COMPARISON: [facility], CT, CT HEAD/BRAIN WO CON, 11/01/2019, 0:07. [facility], CT, CT CERVICAL SPINE WO CON, 11/01/2019, 0:07. [facility], CR, XR ELBOW RT MIN 3V, 11/01/2019, 0:07. FINDINGS: Image quality: Excellent. CHEST: Lungs: No pulmonary contusions or lacerations. No acute airspace opacities. No pneumothorax or hemothorax. Central and peripheral airways appear patent and normal in caliber. Mediastinum: No mediastinal hematomas. Heart size is normal. No pericardial effusion. Thoracic aorta and pulmonary arteries demonstrate normal size and enhancement. No mediastinal or hilar adenopathy. Esophagus is normal in caliber. No hiatal hernia. Chest wall: No rib fractures. No subcutaneous emphysema. No axillary or supraclavicular adenopathy. Thyroid gland appears normal where well seen. ABDOMEN: Solid organs: Liver is normal in size and enhancement, without lacerations. Gallbladder appears normal. Biliary system is non-dilated. Pancreas enhances normally, without transection. Spleen is normal in size and enhancement, without lacerations. No adrenal hematomas. Both kidneys enhance normally, without hydronephrosis or lacerations. Peritoneum and bowel: No free fluid or air. Unenhanced bowel loops demonstrate normal wall thickness and caliber. Nodes and vessels: No retroperitoneal or mesenteric adenopathy. Aorta and inferior vena cava are normal in size and enhancement. Miscellaneous: No ventral hernias. PELVIS: Genitourinary: Bladder wall thickness is normal. Miscellaneous: No inguinal hernias or adenopathy. Bones: Pelvic ring and hip joints appear intact. No vertebral compression fractures. IMPRESSION: No trauma found. Note: These findings are concordant with the preliminary interpretation. Dictated by: Miguel Willingham M.D. on 11/01/2019 at 9:59 Approved by: Miguel Willingham M.D. on 11/01/2019 at 10:03
--- NOTE | 2019-11-01 00:09 | ED_ITS ---
HPI - Fall General Chief Complaint: Fall Stated Complaint: fall at work/back neck left side pain Time Seen by Provider: 10/31/19 23:56 Source: patient Mode of arrival: Family Vehicle History of Present Illness HPI Narrative: 29-year-old otherwise healthy gentleman fell down the stairs while at work this evening. States he was walking down the stairs he slipped on the 2nd 1 and then slid to the 4th 1 fell straight back he does not remember the events immediately prior or post fall. He is complaining of headache, neck pain, pain all the way down his back, left scapular pain, right elbow pain and pelvic pain. He is able to move all extremities and is able to speak in full sentences. GCS is 15. Related Data Previous Rx's Medication Instructions Recorded promethazine-codeine 5 ml PO Q6H PRN #118 ml 06/05/18 hydrocodone 5 mg-acetaminophen 325 1 tab PO Q8H PRN #10 tab 10/08/19 mg tablet terbinafine HCl 250 mg tablet 250 mg PO DAILY #20 tab 10/08/19 Allergies Allergy/AdvReac Type Severity Reaction Status Date / Time No Known Drug Allergies Allergy Verified 10/08/19 15:33 Review of Systems Review of Systems Narrative: Pertinent positive and negative findings as per HPI Remainder of review of systems is otherwise unremarkable for Constitutional: Fevers, chills, weakness ENT: No sore throat, neck pain, ear pain CV: Chest pain, palpitations, dyspnea on exertion Respiratory: Cough, wheeze, dyspnea GI: Nausea, vomiting, diarrhea, change in bowel habits, black or bloody stools : Dysuria, hematuria, flank pain MS: Muscle weakness, numbness, joint swelling or warmth Skin: Rashes, nonhealing lesions Neuro: Syncope, dizziness, tingling Psych: Depression, anxiety, suicidal ideation Patient History Medical History (Updated 11/01/19 @ 03:10 by Rebeka Triplett MD) Chronic back pain (Chronic 2003) Healthy adult (Acute) Shoulder pain (Chronic 2004) Surgical History No history of previous surgery (Resolved 04/04/17) Family History Father Age: 53 H/O knee surgery Mother Stomach problems Chest problem Social History Smoking Status: Never smoker Smoking Status: Never smoker alcohol intake frequency: holidays/special occasions only Substance Use Type: does not use Exam Narrative Exam Narrative: General: Able to walk into the emergency room with very antalgic gait, C-collar placed, shallow breathing but awake and cooperative GCS 15 HEENT: Pupils equal and reactive, mucous membranes moist, no dental injury Neck: Tender to palpation midline C4, 5, 6 with paraspinous tenderness and insertion muscle tenderness at the occiput, trachea is midline Chest: No subcutaneous air, no tenderness to clavicles, he is tender to lateral and AP compression of the chest without hematomas appreciated. There is shallow and symmetrical air movement throughout Respiratory: See no rhonchi, wheezes or rubs Cardiac: Regular rate and rhythm, no murmurs Abdomen: Diffusely tender with flank pain more on the right than the left. No rebound or guarding, diffuse bowel tones Spine and pelvis: Tender along the thoracic spine and again along the lower lumbar spine with pain when pelvic ring is manipulated. Skin: No obvious contusion or skin breakdown Neurologic: Short-term memory loss surrounding the fall with presumed loss of consciousness, moving all extremities and fluent speech pattern Extremities:He is able to flex and bend knees and lift his pelvis without any pain behaviors in lower extremities or hips. Tender over the left superior portion of the scapula with full range of motion at the shoulder. Right elbow with contusion to the olecranon and tenderness with extension. Neurovascularly intact in all 4 extremities Psych: Appropriate, alert and cooperative Initial Vital Signs Initial Vital Signs: Vital Signs Temperature 98.0 F 10/31/19 23:56 Pulse Rate 70 10/31/19 23:56 Respiratory Rate 16 10/31/19 23:56 Blood Pressure 124/77 10/31/19 23:56 Pulse Oximetry 97 10/31/19 23:56 Course Orders Ordered: ED Orders 11/01/19 00:07 XR elbow RT min 3V Stat 11/01/19 00:08 CT cervical spine wo con Stat CT chest abd pel w con Stat CT head/brain wo con Stat 11/01/19 00:53 Complete Blood Count AUTO DIFF Stat Comprehensive Metabolic Panel Stat Lipase Stat Type and Screen Stat Sodium Chloride (Normal Saline 0.9%) 1,000 mls @ 150 mls/hr IV CONT ELLA Last Admin: 11/01/19 00:16 Dose: 150 mls/hr Documented by: JAJA Discontinued Medications Hydromorphone HCl (Dilaudid) 1 mg IV NOW ONE Stop: 11/01/19 00:08 Last Admin: 11/01/19 00:17 Dose: 1 mg Documented by: JAJA Ketorolac Tromethamine (Toradol) 15 mg IV NOW ONE Stop: 11/01/19 02:52 Last Admin: 11/01/19 03:06 Dose: 15 mg Documented by: Ondansetron HCl (Zofran) 4 mg IV NOW ONE Stop: 11/01/19 00:08 Last Admin: 11/01/19 00:17 Dose: 4 mg Documented by: JAJA Oxycodone/Acetaminophen (Percocet 5/325) 1 tab PO NOW ONE Stop: 11/01/19 02:52 Last Admin: 11/01/19 03:06 Dose: 1 tab Documented by: Oxycodone/Acetaminophen (Endocet 5/325 Prepack) 1 bottle MISC SEEINSTR ONE Stop: 11/01/19 02:52 Last Admin: 11/01/19 03:06 Dose: 1 bottle Documented by: Vital Signs Vital signs: Vital Signs - 8 hr 10/31/19 23:56 Temperature 98.0 F Pulse Rate 70 Respiratory Rate 16 Blood Pressure 124/77 Pulse Oximetry 97 MDM - Fall Medical Records Attestation: I reviewed the patient's medical records. Lab Data Attestation: I reviewed the patient's lab results. Result diagrams: 11/01/19 00:53 11/01/19 00:53 Labs: Lab Results 11/01/19 11/01/19 11/01/19 Range/Units 00:53 00:53 00:53 WBC 5.5 (4.5-11.0) X10^3/uL RBC 4.57 (4.5-5.9) X10^6/uL Hgb 14.2 (13.5-17.5) g/dL Hct 41.4 (41-53) % MCV 90.5 (80-100) fL MCH 31.0 (26-34) PG MCHC 34.2 (30-36) % RDW 13.8 (11.6-14.8) % Plt Count 177 (150-400) X10^3/uL Neut % (Auto) 67.1 (50-75) % Lymph % (Auto) 22.7 L (25-40) % [place] % (Auto) 9.6 (3-14) % Eos % (Auto) 0.4 L (2-4) % Baso % (Auto) 0.2 (0-2) % Neut # (Auto) 3700 (6152-7940) /uL Lymph # (Auto) 1300 (0794-6320) /uL [place] # (Auto) 500 (0-900) /uL Eos # (Auto) 0 (0-450) /uL Baso # (Auto) 0 (0-100) /uL Sodium 137 (137-145) mmol/L Potassium 3.9 (3.4-5.1) mmol/L Chloride 102 (98-107) mmol/L Carbon Dioxide 31 (22-32) mmol/L BUN 9 (9-20) mg/dL Creatinine 0.71 (0.66-1.25) mg/dL Estimated GFR > 60.0 (>60) mL/min BUN/Creatinine Ratio 12.7 (6-22) Glucose 86 (70-100) mg/dL Calcium 9.5 (8.4-10.2) mg/dL Total Bilirubin 0.5 (0.2-1.3) mg/dL AST 54 (17-59) IU/L ALT 55 H (<50) IU/L Alkaline Phosphatase 59 (38-126) U/L Total Protein 6.8 (6.3-8.2) g/dL Albumin 4.0 (3.5-5.0) g/dL Globulin 2.8 (1.7-4.1) g/dL Albumin/Globulin Ratio 1.4 (1.0-2.8) Lipase 35 (23-300) U/L Blood Type A Positive Antibody Screen Negative Imaging Data XR elbow: Attestation: I personally reviewed and interpreted this imaging study as follows: My Impression: No fracture or dislocation CT chest abdomen pelvis: Attestation: I personally reviewed and interpreted this imaging study as follows: Radiologist's Impression: No acute posttraumatic changes Dr Lesa Koo CT scan - head: Radiologist's Impression: No acute intracranial process Dr Lesa Koo CT - cervical spine: Radiologist's Impression: No acute fracture ro significant subluxation Lesa Koo MDM Narrative Medical decision making narrative: 29-year-old gentleman who slipped and fell down 3-4 stairs landing flat on his head neck and back with significant musculoskeletal pain. CT scans and x-rays do not suggest any fractures or pneu mothorax, intra-abdominal or retroperitoneal hemorrhage. CT scan of head and cervical spine are similarly reassuring He remains significantly sore and clearly has a concussion with brief loss of consciousness. He is given half a mg of Dilaudid and prior to discharge Toradol and a single oral Percocet. Will recommend 3 days off work to allow for adequate healing and improvement from concussion. Questions are answered and patient is safe for home discharge Discharge Plan Departure Patient Disposition: Home Clinical Impression: Sprain of ligaments of thoracic spine, initial encounter Concussion with loss of consciousness Qualifiers: Encounter type: initial encounter Qualified Code(s): S06.0X9A - Concussion with loss of consciousness of unspecified duration, initial encounter Acute cervical sprain Qualifiers: Encounter type: initial encounter Qualified Code(s): S13.9XXA - Sprain of joints and ligaments of unspecified parts of neck, initial encounter Fall Qualifiers: Encounter type: initial encounter Qualified Code(s): W19.XXXA - Unspecified fall, initial encounter Contusion of elbow, right Qualifiers: Encounter type: initial encounter Qualified Code(s): S50.01XA - Contusion of right elbow, initial encounter Instructions: DI for Neck Sprain, DI for Postconcussion Syndrome, DI for Thoracic Back Pain Activity Restrictions/Additional Instructions: Thank you for coming in today You got very joann. Your fall definitely is going to cause some significant aches and pains. Your actually going to hurt more over the next 48 hours then you do now. Fortunately there is no evidence of bleeding into your brain or any broken bones. Your cervical spine thoracic and lumbar spine are all reassuringly solid. Your right elbow is not broken he and you do not have any internal injury. You do have a concussion and you may find that you simply just feel generally unwell and sometimes even nauseated for a couple of days. You have told me you have Zofran available at home and it would be appropriate to use this if you are nauseated. Using 400 mg of ibuprofen (2 qdzy-[id number]-hfbcyto pills) and 1 Tylenol every 6 hours can be very helpful in controlling pain. For severe pain using 400 mg of ibuprofen and 1 Percocet every 6 hours is appropriate. Please make sure that you are getting up in continuing to move by at least walking around the house. Hot showers will likely be helpful with the muscle stiffness as well If you find new areas of injury that we have not assessed this evening, please feel free to return and I am happy to relook. L & I paperwork has been initiated. I am recommending 3 days off work to allow the musculoskeletal injuries as well as the concussion to improve. I hope you heal quickly Prescriptions: No Action hydrocodone-acetaminophen 5-325 mg tablet 1 tab PO Q8H PRN (Reason: pain) Qty: 10 RF: 0 terbinafine HCl 250 mg tablet 250 mg PO DAILY Qty: 20 RF: 0 promethazine-codeine 6.25-10 mg/5 mL syrup 5 ml PO Q6H PRN (Reason: cough) Qty: 118 RF: 0 Referrals: Chantelle Hall MD [Primary Care Provider] - Stand Alone Forms: Work Release Note
[2019-11-01] MEDS: SODIUM CHLORIDE 0.9% 1,000 ML 150 ML IV (00:16)
[2019-11-01] MEDS: ONDANSETRON 4 MG/2 ML INJ IV (00:17)
[2019-11-01] MEDS: HYDROMORPHONE 1 MG INJ IV (00:17)
[2019-11-01 01:09] LABS: Add Manual Diff / Slide Review NO; Basophils Absolute Auto 0 /uL (0-100); Basophils Percent Auto 0.2 % (0-2); Eosinophils Absolute Auto 0 /uL (0-450); Eosinophils Percent Auto 0.4 % (2-4); Hematocrit 41.4 % (41-53); Hemoglobin 14.2 g/dL (13.5-17.5); Lymphocytes Absolute Auto 1300 /uL (1100-4500); Lymphocytes Percent Auto 22.7 % (25-40); Mean Corpuscular HGB Conc 34.2 % (30-36); Mean Corpuscular Volume 90.5 fL (80-100); Monocytes Absolute Auto 500 /uL (0-900); Monocytes Percent Auto 9.6 % (3-14); Neutrophils Absolute Auto 3700 /uL (1500-7000); Neutrophils Percent Auto 67.1 % (50-75); Platelet Count 177 X10^3/uL (150-400); Red Blood Cell Count 4.57 X10^6/uL (4.5-5.9); Red Cell Distribution Width 13.8 % (11.6-14.8); White Blood Cell Count 5.5 X10^3/uL (4.5-11.0)
[2019-11-01 01:20] LABS: Alanine Aminotransferase 55 IU/L (<50); Albumin Globulin Ratio 1.4 (1.0-2.8); Alkaline Phosphatase 59 U/L (38-126); Aspartate Aminotransferase 54 IU/L (17-59); BUN Creatinine Ratio 12.7 (6-22); Bilirubin Total 0.5 mg/dL (0.2-1.3); Blood Urea Nitrogen 9 mg/dL (9-20); Calcium 9.5 mg/dL (8.4-10.2); Carbon Dioxide 31 mmol/L (22-32); Chloride 102 mmol/L (98-107); Estimated Glomerular Filt Rate > 60.0 mL/min (>60); Globulin 2.8 g/dL (1.7-4.1); Glucose 86 mg/dL (70-100); HEMOLYSIS < 15 (0-50); Lipase 35 U/L (23-300); Potassium 3.9 mmol/L (3.4-5.1); Sodium 137 mmol/L (137-145); Total Protein 6.8 g/dL (6.3-8.2)
[2019-11-01] MEDS: KETOROLAC 60 MG/2 ML VIAL 15 MG IV (03:06)
[2019-11-01] MEDS: OXYCODONE/APAP 5/325 PREPACK 1 BOTTLE MISC (03:06)
[2019-11-01] MEDS: OXYCODONE/ACETAMINOPHEN 5/325 TABLET 1 TAB PO (03:06)
[2019-11-01 03:23] VITALS: BP 111/69; PULSE 59; RESP 16; O2SAT 97
== END 2019-11-01 03:40 | disposition home or self-care (01) ==
PROVIDERS: Emergency Provider Emergency Medicine; PCP Family Medicine
DX: S06.0X1A Concussion with loss of consciousness of 30 minutes or less, initial encounter (principal); S13.4XXA Sprain of ligaments of cervical spine, initial encounter; S50.01XA Contusion of right elbow, initial encounter; R10.2 Pelvic and perineal pain; M54.6 Pain in thoracic spine; M54.5 Low back pain; M25.512 Pain in left shoulder; R51 Headache; W10.9XXA Fall (on) (from) unspecified stairs and steps, initial encounter; Y99.0 Civilian activity done for income or pay
CPT/HCPCS: 36415; 70450; 71260; 72125; 73080; 74177; 80053; 83690; 85025; 86850; 86900; 86901; 96361; 96374; 96375; 99284; 99285; J1170; J1885; J2405; Q9967

== ENCOUNTER 2020-08-20 13:40 | Emergency (ER) | payer OTHER, MEDICAID, SELFPAY ==
[2020-08-20] VITALS (10 sets, daily range): BP systolic 94–122; BP diastolic 60–81; PULSE 53–67; RESP 14–26; TEMP 36.6; O2SAT 94–100; BMI 20.9
--- NOTE | 2020-08-20 14:21 | DI.RAD.S_ITS ---
PROCEDURE: XR CHEST 1V INDICATIONS: chest pain TECHNIQUE: One view of the chest was acquired. COMPARISON: [facility], CR, XR CHEST 1V, 05/10/2019, 8:35. FINDINGS: Surgical changes and devices: None. Lungs and pleura: Lungs are clear. No pleural effusions or pneumothorax. Mediastinum: Mediastinal contours appear normal. Heart size is normal. Bones and chest wall: No suspicious bony lesions. Overlying soft tissues appear unremarkable. IMPRESSION: No acute cardiopulmonary disease process. Dictated by: Telma Bill MD, PhD on 08/20/2020 at 14:47 Approved by: Telma Bill MD, PhD on 08/20/2020 at 14:48
[2020-08-20 14:29] LABS: Add Manual Diff / Slide Review NO; Basophils Absolute Auto 0 /uL (0-100); Basophils Percent Auto 0.8 % (0-2); Eosinophils Absolute Auto 0 /uL (0-450); Hematocrit 47.5 % (41-53); Hemoglobin 15.7 g/dL (13.5-17.5); Lymphocytes Absolute Auto 1400 /uL (1100-4500); Lymphocytes Percent Auto 36.4 % (25-40); Mean Corpuscular Hemoglobin 30.4 PG (26-34); Mean Corpuscular Volume 92.1 fL (80-100); Monocytes Absolute Auto 300 /uL (0-900); Monocytes Percent Auto 8.7 % (3-14); Neutrophils Absolute Auto 2000 /uL (1500-7000); Neutrophils Percent Auto 53.1 % (50-75); Platelet Count 191 X10^3/uL (150-400); Red Blood Cell Count 5.16 X10^6/uL (4.5-5.9); Red Cell Distribution Width 13.9 % (11.6-14.8); White Blood Cell Count 3.8 X10^3/uL (4.5-11.0)
[2020-08-20 14:33] LABS: Alanine Aminotransferase 59 IU/L (<50); Albumin 4.4 g/dL (3.5-5.0); Albumin Globulin Ratio 1.6 (1.0-2.8); Alkaline Phosphatase 66 U/L (38-126); Aspartate Aminotransferase 51 IU/L (17-59); BUN Creatinine Ratio 15.5 (6-22); Bilirubin Total 0.4 mg/dL (0.2-1.3); Blood Urea Nitrogen 11 mg/dL (9-20); Calcium 9.6 mg/dL (8.4-10.2); Carbon Dioxide 31 mmol/L (22-32); Chloride 106 mmol/L (98-107); Creatine Kinase 450 U/L (55-170); Estimated Glomerular Filt Rate > 60.0 mL/min (>60); Globulin 2.7 g/dL (1.7-4.1); Glucose 103 mg/dL (70-100); HEMOLYSIS 19 (0-50); Lipase 42 U/L (23-300); Sodium 143 mmol/L (137-145); Total Protein 7.1 g/dL (6.3-8.2)
[2020-08-20 14:34] LABS: D Dimer < 200 ng/mL (<230); INR 0.9 (0.9-1.3); PTT Partial Thromboplastin Tim 33 SECONDS (26.4-36.2); Prothrombin Time 10.3 SECONDS (10.1-12.7)
[2020-08-20 14:43] LABS: COVID19 -Nasal RAPID Negative (Negative)
[2020-08-20 14:45] LABS: NT-proBNP (BNP-Adult 18+) 21 pg/mL (<125); Troponin I < 0.012 ng/mL (0.01-0.034)
[2020-08-20 14:48] LABS: CKMB % Relative Index 1.7 % (1.5-5.0); Creatine Kinase MB 7.87 ng/mL (<2.37)
[2020-08-20] MEDS: SODIUM CHLORIDE 0.9% 1,000 ML 150 ML IV (15:09)
[2020-08-20] MEDS: KETOROLAC 60 MG/2 ML VIAL 30 MG IV (15:11)
[2020-08-20 16:42] LABS: Creatine Kinase 382 U/L (55-170)
[2020-08-20 16:54] LABS: Troponin I < 0.012 ng/mL (0.01-0.034)
[2020-08-20 16:57] LABS: CKMB % Relative Index 1.9 % (1.5-5.0)
--- NOTE | 2020-08-20 17:10 | ED_ITS ---
HPI - Chest Pain <TARUN Perdomo-BC - Last Filed: 08/20/20 17:31> General Chief Complaint: Chest Pain Stated Complaint: chest pain Time Seen by Provider: 08/20/20 14:03 Source: patient Mode of arrival: Ambulatory Limitations: no limitations History of Present Illness HPI narrative: The patient is a 30-year-old female nonsmoker presents with his for chief complaint of chest pain over the past few days. Patient's notes that he started having chest pain from his mid sternum over his right side 2-3 days ago, then it moved over to his left side. Worse with movement and pressure. No dizziness or lightheadedness, no palpitations, no abdominal pain nausea vomiting diarrhea or swelling of his extremities. Denies any cardiac history, denies any history of hypertension hyperlipidemia. Does endorse a family history of [place], including his father who now has a pacemaker. He was unable to get in with primary care provider today, who referred him to the emergency department for more urgent cardiac workup. He denies any specific immobility over the past few days, recent flights or hospitalizations etcetera. Denies any cough or congestion. Has not taken anything to feel better. Related Data Previous Rx's Medication Instructions Recorded clotrimazole 1 % topical cream 1 applictn TOP BID #30 gram 11/23/19 ketorolac 10 mg PO TID PRN #14 tab 08/20/20 Allergies Allergy/AdvReac Type Severity Reaction Status Date / Time No Known Drug Allergies Allergy Verified 08/20/20 14:02 Review of Systems <TARUN Perdomo-BC - Last Filed: 08/20/20 17:31> Review of Systems Narrative: GENERAL: Denies chills, fatigue, malaise, fever, sweats. HEENT: Denies sinus pain, ear pain, sore throat, difficulty swallowing, dizziness. RESPIRATORY: See HPI CARDIOVASCULAR: See HPI GASTROINTESTINAL: Denies nausea, vomiting, abdominal pain, diarrhea, constipation, melena. : Denies dysuria, frequency, incontinence, hematuria, urinary retention. MUSCULOSKELETAL: denies weakness, joint pain, or bony pain SKIN: Denies rash, skin lesions, or other NEUROLOGIC: Denies weakness, headache, numbness, change in speech, confusion, seizures, incoordination. PSYCHIATRIC: No concerning psychosocial issues. 12 point review of systems is negative except for those stated above Patient History <[place] Perdomo - Last Filed: 08/20/20 17:31> Medical History Chronic back pain (2003) Healthy adult Shoulder pain (2004) Surgical History No history of previous surgery (04/04/17) Family History Father Age: 54 H/O knee surgery Mother Stomach problems Chest problem Social History Smoking Status: Never smoker Smoking Status: Never smoker alcohol intake frequency: a few times a week Substance Use Type: does not use Exam <[place] Perdomo - Last Filed: 08/20/20 17:31> Narrative Exam Narrative: GENERAL: This is a well-nourished, well-developed patient, in no acute distress HEAD: Atraumatic. Normocephalic. No temporal or scalp tenderness. EYES: Pupils equal round and reactive. Extraocular motions intact. No scleral icterus. No injection or drainage. ENT: Nose without bleeding, purulent drainage or septal hematoma. Throat without erythema, tonsillar hypertrophy or exudate. Uvula midline. Airway patent. NECK: Trachea midline. No JVD or lymphadenopathy. Supple, nontender, no meningeal signs. CARDIOVASCULAR: Regular rate and rhythm. Pain to palpation left costochondral joints. RESPIRATORY: Clear to auscultation. Breath sounds equal bilaterally. No wheezes, rales, or rhonchi. No cough. No increased respiratory effort. No accessory muscle use GASTROINTESTINAL: Abdomen soft, non-tender, nondistended. No hepato- splenomegaly, or palpable masses. No guarding. EXTREMITIES: No clubbing, cyanosis, or edema. No joint tenderness, effusion, or edema noted. BACK: Nontender without deformity or crepitance. No flank tenderness. NEURO: AOx3. SKIN: No rash or erythema on visible skin Initial Vital Signs Initial Vital Signs: Vital Signs Pulse Rate 63 08/20/20 13:50 Pulse Oximetry 99 08/20/20 13:50 <Rebeka Triplett MD - Last Filed: 08/21/20 18:34> Initial Vital Signs Initial Vital Signs: Vital Signs Pulse Rate 63 08/20/20 13:50 Pulse Oximetry 99 08/20/20 13:50 Scores <[place] Perdomo - Last Filed: 08/20/20 17:31> GCS Luis coma scale eye opening: Spontaneous Luis coma scale verbal response: Orientated Luis coma scale motor response: Obey commands Luis coma scale total score: 15 Course <[place] Perdomo - Last Filed: 08/20/20 17:31> Orders Ordered: Discontinued Medications Sodium Chloride (Normal Saline 0.9%) 1,000 mls @ 150 mls/hr IV CONT ELLA Last Infusion: 08/20/20 16:33 Dose: 0 mls/hr Documented by: Admin: 08/20/20 15:09 Dose: 150 mls/hr Documented by: CARMINA Ketorolac Tromethamine (Ketorolac 60 Mg/2 Ml Vial) 30 mg IV NOW ONE Stop: 08/20/20 15:07 Last Admin: 08/20/20 15:11 Dose: 30 mg Documented by: CARMINA Vital Signs Vital signs: Vital Signs - 8 hr 08/20/20 13:50 08/20/20 14:00 08/20/20 14:02 Temperature 97.9 F Pulse Rate 63 67 63 Respiratory Rate 26 H 14 Blood Pressure 122/81 122/81 Pulse Oximetry 99 98 97 08/20/20 14:30 08/20/20 15:00 08/20/20 15:30 Temperature Pulse Rate 60 56 L Respiratory Rate 16 17 19 Blood Pressure 102/68 102/62 94/62 Pulse Oximetry 94 95 96 08/20/20 16:00 08/20/20 16:31 08/20/20 16:33 Temperature Pulse Rate 53 L 56 L 53 L Respiratory Rate 19 16 Blood Pressure 99/60 111/69 Pulse Oximetry 96 99 100 08/20/20 17:00 Temperature Pulse Rate 56 L Respiratory Rate 16 Blood Pressure 96/65 Pulse Oximetry 99 <Rebeka Triplett MD - Last Filed: 08/21/20 18:34> Orders Ordered: Discontinued Medications Sodium Chloride (Normal Saline 0.9%) 1,000 mls @ 150 mls/hr IV CONT ELLA Last Infusion: 08/20/20 16:33 Dose: 0 mls/hr Documented by: Admin: 08/20/20 15:09 Dose: 150 mls/hr Documented by: CARMINA Ketorolac Tromethamine (Ketorolac 60 Mg/2 Ml Vial) 30 mg IV NOW ONE Stop: 08/20/20 15:07 Last Admin: 08/20/20 15:11 Dose: 30 mg Documented by: CARMINA Vital Signs Vital signs: Vital Signs - 8 hr 08/20/20 13:50 08/20/20 14:00 08/20/20 14:02 Temperature 97.9 F Pulse Rate 63 67 63 Respiratory Rate 26 H 14 Blood Pressure 122/81 122/81 Pulse Oximetry 99 98 97 08/20/20 14:30 08/20/20 15:00 08/20/20 15:30 Temperature Pulse Rate 60 56 L Respiratory Rate 16 17 19 Blood Pressure 102/68 102/62 94/62 Pulse Oximetry 94 95 96 08/20/20 16:00 08/20/20 16:31 08/20/20 16:33 Temperature Pulse Rate 53 L 56 L 53 L Respiratory Rate 19 16 Blood Pressure 99/60 111/69 Pulse Oximetry 96 99 100 08/20/20 17:00 Temperature Pulse Rate 56 L Respiratory Rate 16 Blood Pressure 96/65 Pulse Oximetry 99 MDM - Chest Pain <TARUN Perdomo-BC - Last Filed: 08/20/20 17:31> Lab Data Attestation: I reviewed the patient's lab results. Result diagrams: 08/20/20 13:57 08/20/20 13:57 Labs: Lab Results 08/20/20 08/20/20 08/20/20 Range/Units 13:57 13:57 13:57 WBC 3.8 L (4.5-11.0) X10^3/uL RBC 5.16 (4.5-5.9) X10^6/uL Hgb 15.7 (13.5-17.5) g/dL Hct 47.5 (41-53) % MCV 92.1 (80-100) fL MCH 30.4 (26-34) PG MCHC 33.0 (30-36) % RDW 13.9 (11.6-14.8) % Plt Count 191 (150-400) X10^3/uL Neut % (Auto) 53.1 (50-75) % Lymph % (Auto) 36.4 (25-40) % [place] % (Auto) 8.7 (3-14) % Eos % (Auto) 1.0 L (2-4) % Baso % (Auto) 0.8 (0-2) % Neut # (Auto) 2000 (7811-1101) /uL Lymph # (Auto) 1400 (8016-6479) /uL [place] # (Auto) 300 (0-900) /uL Eos # (Auto) 0 (0-450) /uL Baso # (Auto) 0 (0-100) /uL PT 10.3 (10.1-12.7) SECONDS INR 0.9 (0.9-1.3) APTT 33 D (26.4-36.2) SECONDS D-Dimer (<230) ng/mL Sodium 143 (137-145) mmol/L Potassium 4.0 (3.4-5.1) mmol/L Chloride 106 (98-107) mmol/L Carbon Dioxide 31 (22-32) mmol/L BUN 11 (9-20) mg/dL Creatinine 0.71 (0.66-1.25) mg/dL Estimated GFR > 60.0 (>60) mL/min BUN/Creatinine Ratio 15.5 (6-22) Glucose 103 H (70-100) mg/dL Calcium 9.6 (8.4-10.2) mg/dL Total Bilirubin 0.4 (0.2-1.3) mg/dL AST 51 (17-59) IU/L ALT 59 H (<50) IU/L Alkaline Phosphatase 66 (38-126) U/L Total Creatine Kinase 450 H (55-170) U/L CK-MB (CK-2) 7.87 H (<2.37) ng/mL CK-MB (CK-2) Rel Index 1.7 (1.5-5.0) % Troponin I < 0.012 (0.01-0.034) ng/mL NT-Pro-B Natriuret Pep 21 (<125) pg/mL Total Protein 7.1 (6.3-8.2) g/dL Albumin 4.4 (3.5-5.0) g/dL Globulin 2.7 (1.7-4.1) g/dL Albumin/Globulin Ratio 1.6 (1.0-2.8) Lipase 42 (23-300) U/L SARS-CoV-2 (PCR) (Negative) 08/20/20 08/20/20 08/20/20 Range/Units 13:57 14:26 16:00 WBC (4.5-11.0) X10^3/uL RBC (4.5-5.9) X10^6/uL Hgb (13.5-17.5) g/dL Hct (41-53) % MCV (80-100) fL MCH (26-34) PG MCHC (30-36) % RDW (11.6-14.8) % Plt Count (150-400) X10^3/uL Neut % (Auto) (50-75) % Lymph % (Auto) (25-40) % [place] % (Auto) (3-14) % Eos % (Auto) (2-4) % Baso % (Auto) (0-2) % Neut # (Auto) (5122-8309) /uL Lymph # (Auto) (7472-5222) /uL [place] # (Auto) (0-900) /uL Eos # (Auto) (0-450) /uL Baso # (Auto) (0-100) /uL PT (10.1-12.7) SECONDS INR (0.9-1.3) APTT (26.4-36.2) SECONDS D-Dimer < 200 (<230) ng/mL Sodium (137-145) mmol/L Potassium (3.4-5.1) mmol/L Chloride (98-107) mmol/L Carbon Dioxide (22-32) mmol/L BUN (9-20) mg/dL Creatinine (0.66-1.25) mg/dL Estimated GFR (>60) mL/min BUN/Creatinine Ratio (6-22) Glucose (70-100) mg/dL Calcium (8.4-10.2) mg/dL Total Bilirubin (0.2-1.3) mg/dL AST (17-59) IU/L ALT (<50) IU/L Alkaline Phosphatase (38-126) U/L Total Creatine Kinase 382 H (55-170) U/L CK-MB (CK-2) 7.20 H (<2.37) ng/mL CK-MB (CK-2) Rel Index 1.9 (1.5-5.0) % Troponin I < 0.012 (0.01-0.034) ng/mL NT-Pro-B Natriuret Pep (<125) pg/mL Total Protein (6.3-8.2) g/dL Albumin (3.5-5.0) g/dL Globulin (1.7-4.1) g/dL Albumin/Globulin Ratio (1.0-2.8) Lipase (23-300) U/L SARS-CoV-2 (PCR) Negative (Negative) Imaging Data Chest x-ray: Radiologist's Impression: [address] [place] [address] [id number] ReportSigned Patient: Lexa Gabriel KMR#: [id number]: 1990Acct:[id number]/Sex: 30 / MDate of Service: 08/20/20Loc: EDAccession Number: [id number] Procedure: XR chest 1V Ordering Provider: Dione Renee- PROCEDURE: XR CHEST 1V INDICATIONS: chest pain TECHNIQUE: One view of the chest was acquired. COMPARISON: [facility], , XR CHEST 1V, 05/10/2019, 8:35. FINDINGS: Surgical changes and devices: None. Lungs and pleura: Lungs are clear. No pleural effusions or pneumothorax. Mediastinum: Mediastinal contours appear normal. Heart size is normal. Bones and chest wall: No suspicious bony lesions. Overlying soft tissues appear unremarkable. IMPRESSION: No acute cardiopulmonary disease process. Dictated by: Telma Bill MD, PhD on 08/20/2020 at 14:47 Approved by: Telma Bill MD, PhD on 08/20/2020 at 14:48 ECG Data Attestation: I personally reviewed and interpreted this ECG as follows: Interpretation: Sinus rhythm with first-degree AV block. Ventricular rate 61. Pr interval 230. QRS 102. Viewed by Dr Triplett [facility] Narrative Medical decision making narrative: The patient is a 30-year-old male presents with a chief complaint of chest pain for the past few days. He has a normal EKG, negative troponin negative chest x-ray negative coated and negative D- dimer.. Repeat troponin is also negative. The patient feels much improved a fter a dose of Toradol, so I did give him a prescription of that strict instructions not combine with ibuprofen Aleve or any other NSAIDs. Encouraged follow-up with primary care provider in the next few days. Discussed at length come back to the ER for acute concerns. 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 Patient and have no questions or concerns upon discharge and state understanding of return precautions as well as follow-up care. <Rebeka Triplett MD - Last Filed: 08/21/20 18:34> Lab Data Labs: Lab Results 08/20/20 08/20/20 08/20/20 Range/Units 13:57 13:57 13:57 WBC 3.8 L (4.5-11.0) X10^3/uL RBC 5.16 (4.5-5.9) X10^6/uL Hgb 15.7 (13.5-17.5) g/dL Hct 47.5 (41-53) % MCV 92.1 (80-100) fL MCH 30.4 (26-34) PG MCHC 33.0 (30-36) % RDW 13.9 (11.6-14.8) % Plt Count 191 (150-400) X10^3/uL Neut % (Auto) 53.1 (50-75) % Lymph % (Auto) 36.4 (25-40) % [place] % (Auto) 8.7 (3-14) % Eos % (Auto) 1.0 L (2-4) % Baso % (Auto) 0.8 (0-2) % Neut # (Auto) 2000 (0681-6958) /uL Lymph # (Auto) 1400 (2258-0511) /uL [place] # (Auto) 300 (0-900) /uL Eos # (Auto) 0 (0-450) /uL Baso # (Auto) 0 (0-100) /uL PT 10.3 (10.1-12.7) SECONDS INR 0.9 (0.9-1.3) APTT 33 D (26.4-36.2) SECONDS D-Dimer (<230) ng/mL Sodium 143 (137-145) mmol/L Potassium 4.0 (3.4-5.1) mmol/L Chloride 106 (98-107) mmol/L Carbon Dioxide 31 (22-32) mmol/L BUN 11 (9-20) mg/dL Creatinine 0.71 (0.66-1.25) mg/dL Estimated GFR > 60.0 (>60) mL/min BUN/Creatinine Ratio 15.5 (6-22) Glucose 103 H (70-100) mg/dL Calcium 9.6 (8.4-10.2) mg/dL Total Bilirubin 0.4 (0.2-1.3) mg/dL AST 51 (17-59) IU/L ALT 59 H (<50) IU/L Alkaline Phosphatase 66 (38-126) U/L Total Creatine Kinase 450 H (55-170) U/L CK-MB (CK-2) 7.87 H (<2.37) ng/mL CK-MB (CK-2) Rel Index 1.7 (1.5-5.0) % Troponin I < 0.012 (0.01-0.034) ng/mL NT-Pro-B Natriuret Pep 21 (<125) pg/mL Total Protein 7.1 (6.3-8.2) g/dL Albumin 4.4 (3.5-5.0) g/dL Globulin 2.7 (1.7-4.1) g/dL Albumin/Globulin Ratio 1.6 (1.0-2.8) Lipase 42 (23-300) U/L SARS-CoV-2 (PCR) (Negative) 08/20/20 08/20/20 08/20/20 Range/Units 13:57 14:26 16:00 WBC (4.5-11.0) X10^3/uL RBC (4.5-5.9) X10^6/uL Hgb (13.5-17.5) g/dL Hct (41-53) % MCV (80-100) fL MCH (26-34) PG MCHC (30-36) % RDW (11.6-14.8) % Plt Count (150-400) X10^3/uL Neut % (Auto) (50-75) % Lymph % (Auto) (25-40) % [place] % (Auto) (3-14) % Eos % (Auto) (2-4) % Baso % (Auto) (0-2) % Neut # (Auto) (4875-7147) /uL Lymph # (Auto) (9703-9525) /uL [place] # (Auto) (0-900) /uL Eos # (Auto) (0-450) /uL Baso # (Auto) (0-100) /uL PT (10.1-12.7) SECONDS INR (0.9-1.3) APTT (26.4-36.2) SECONDS D-Dimer < 200 (<230) ng/mL Sodium (137-145) mmol/L Potassium (3.4-5.1) mmol/L Chloride (98-107) mmol/L Carbon Dioxide (22-32) mmol/L BUN (9-20) mg/dL Creatinine (0.66-1.25) mg/dL Estimated GFR (>60) mL/min BUN/Creatinine Ratio (6-22) Glucose (70-100) mg/dL Calcium (8.4-10.2) mg/dL Total Bilirubin (0.2-1.3) mg/dL AST (17-59) IU/L ALT (<50) IU/L Alkaline Phosphatase (38-126) U/L Total Creatine Kinase 382 H (55-170) U/L CK-MB (CK-2) 7.20 H (<2.37) ng/mL CK-MB (CK-2) Rel Index 1.9 (1.5-5.0) % Troponin I < 0.012 (0.01-0.034) ng/mL NT-Pro-B Natriuret Pep (<125) pg/mL Total Protein (6.3-8.2) g/dL Albumin (3.5-5.0) g/dL Globulin (1.7-4.1) g/dL Albumin/Globulin Ratio (1.0-2.8) Lipase (23-300) U/L SARS-CoV-2 (PCR) Negative (Negative) Discharge Plan Departure Patient Disposition: Home Clinical Impression: Atypical chest pain, Costochondritis Instructions: DI for Atypical Chest Pain, DI for Costochondritis Activity Restrictions/Additional Instructions: Thank you for trusting us with your care today As discussed, your cardiac evaluation came back very well. Your lab work and imaging resulted well, and your COVID test resulted negative. I did send a prescription of ketorolac or Toradol, which would help musculoskeletal pain or inflammation. I sent this to [facility] in [place]. I have given you a prescription of Toradol. This is an NSAID. Do not combine it with other NSAIDs such as Aleve or ibuprofen. I suggest taking it with some food, as it can irritate your stomach. Please follow-up with primary care provider in the next few days. Please come back to emergency department for any acute concerns. Prescriptions: New ketorolac 10 mg tablet 10 mg PO TID PRN (Reason: pain) Qty: 14 RF: 0 No Action clotrimazole 1 % cream 1 applictn TOP BID Qty: 30 RF: 2 Referrals: Chantelle Hall MD [Primary Care Provider] - <Rebeka Triplett MD - Last Filed: 08/21/20 18:34> [facility]: I was immediately available in the department for consultation throughout this patient's visit. I agree with documentation as above. Rebeka Triplett MD
== END 2020-08-20 17:22 | disposition home or self-care (01) ==
PROVIDERS: Emergency Provider Nurse Practitioner Family; PCP Family Medicine
DX: R07.9 Chest pain, unspecified (principal); M94.0 Chondrocostal junction syndrome [Tietze]; I44.0 Atrioventricular block, first degree; Z20.822 Contact with and (suspected) exposure to COVID-19
CPT/HCPCS: 36415; 71045; 80053; 82550; 82553; 83690; 83880; 84484; 85025; 85379; 85610; 85730; 87635; 93005; 93010; 96361; 96374; 99284; C9803; J1885

== ENCOUNTER 2021-02-10 18:08 | Emergency (ER) | payer OTHER, MEDICAID, SELFPAY ==
[2021-02-10 18:12] VITALS: BP 133/77; PULSE 77; RESP 20; TEMP 37.3; O2SAT 100
[2021-02-10 19:28] LABS: COVID19 -Nasal RAPID Negative (Negative)
== END 2021-02-10 19:58 | disposition left against medical advice (07) ==
PROVIDERS: Emergency Medicine; Emergency Provider Emergency Medicine; PCP Family Medicine
DX: R51.9 Headache, unspecified (principal); J02.9 Acute pharyngitis, unspecified; Z20.822 Contact with and (suspected) exposure to COVID-19
CPT/HCPCS: 87635; 99281; C9803

== ENCOUNTER 2021-07-02 22:36 | Emergency (ER) | payer OTHER, MEDICAID, SELFPAY ==
[2021-07-02 22:45] VITALS: BP 104/72; PULSE 70; RESP 18; TEMP 36.6; O2SAT 98
[2021-07-02 23:10] LABS: COVID19 -Nasal RAPID Negative (Negative)
--- NOTE | 2021-07-03 00:36 | ED.URI ---
HPI - URI/Sore Throat General Chief Complaint: Upper Respiratory Symptoms Stated Complaint: not feeling good, thinks covid Time Seen by Provider: 07/03/21 00:35 Source: patient Mode of arrival: Ambulatory History of Present Illness HPI Narrative: Patient is a Healthy 31-year-old male vaccinated exposed to COVID 3 days ago having headache and sore throat. Denies any shortness of breath. Mild symptoms started today. is also here wanting testing. Related Data Previous Rx's Medication Instructions Recorded clotrimazole 1 % topical cream 1 applictn TOP BID #30 gram 11/23/19 ketorolac 10 mg tablet 10 mg PO TID PRN #14 tab 08/20/20 Allergies Allergy/AdvReac Type Severity Reaction Status Date / Time No Known Drug Allergies Allergy Verified 08/20/20 14:02 Review of Systems Review of Systems Narrative: GENERAL: Denies chills,fever HEENT: See HPI RESPIRATORY: Denies dyspnea, cough, wheezing CARDIOVASCULAR: Denies chest pain, palpitations GASTROINTESTINAL: Denies nausea, vomiting MUSCULOSKELETAL: Denies extremity pain, injury SKIN: No rash, no laceration, no pruritus NEUROLOGIC: Denies weakness, dizziness, headache, numbness 8 point review of systems is negative except for those stated above and HPI Patient History Medical History Chronic back pain (2003) Healthy adult Shoulder pain (2004) Surgical History No history of previous surgery (04/04/17) Family History Father Age: 55 H/O knee surgery Mother Stomach problems Chest problem Social History Smoking Status: Never smoker Smoking Status: Never smoker alcohol intake frequency: a few times a week Substance Use Type: does not use Exam Initial Vital Signs Initial Vital Signs: Vital Signs Temperature 98 F 07/02/21 22:45 Pulse Rate 70 07/02/21 22:45 Respiratory Rate 18 07/02/21 22:45 Blood Pressure 104/72 07/02/21 22:45 Pulse Oximetry 98 07/02/21 22:45 GENERAL: Well-appearing, well-nourished and in no acute distress. CARDIOVASCULAR: peripheral pulses in tact, cap refill <2 sec RESPIRATORY: No respiratory distress, speaks in full sentences without difficulty EXTREMITIES: Normal range of motion, no clubbing or edema. Neurovascularly intact NEUROLOGICAL: Cranial nerves II through XII grossly intact. Normal gait and speech. SKIN: Warm, dry, no petechiae, no rashes or lesions. Course Orders Ordered: ED Orders 07/02/21 22:45 COVID19 -Nasal swab/Pre-Proc Stat Vital Signs Vital signs: Vital Signs - 8 hr 07/02/21 22:45 Temperature 98 F Pulse Rate 70 Respiratory Rate 18 Blood Pressure 104/72 Pulse Oximetry 98 MDM - URI/Sore Throat Lab Data Labs: Lab Results 07/02/21 Range/Units 22:45 SARS-CoV-2 (PCR) Negative (Negative) Discharge Plan Departure Patient Disposition: Home Clinical Impression: COVID-19 Instructions: DI for COVID-19 (Suspected or Confirmed ) Activity Restrictions/Additional Instructions: *You have been diagnosed with presumed COVID *What to do: At this time I recommend getting retested for COVID in about 2-3 days *Continue to take medications as directed *Follow up with your primary care provider in 2-3 days or call [phone] *Return to ER if you should have any new, worsening or concerning symptoms Prescriptions: No Action clotrimazole 1 % cream 1 applictn TOP BID Qty: 30 2RF ketorolac 10 mg tablet 10 mg PO TID PRN (Reason: pain) Qty: 14 0RF Referrals: Chantelle Hall MD [Primary Care Provider] -
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
== END 2021-07-03 00:49 | disposition home or self-care (01) ==
PROVIDERS: Emergency Provider Emergency Medicine; PCP Family Medicine
DX: R51.9 Headache, unspecified (principal); J02.9 Acute pharyngitis, unspecified; Z20.822 Contact with and (suspected) exposure to COVID-19
CPT/HCPCS: 87635; 99281; 99282; C9803

== ENCOUNTER 2021-11-03 01:42 | Emergency (ER) | payer OTHER, MEDICAID, SELFPAY ==
[2021-11-03 01:50] VITALS: BP 118/74; PULSE 69; RESP 17; TEMP 36.7; O2SAT 100; BMI 23.7
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
[2021-11-03] MEDS: KETOROLAC 30 MG/ML VIAL IM (02:36)
[2021-11-03] MEDS: CYCLOBENZAPRINE 10 MG PREPACK 1 BOTTLE MISC (02:36)
== END 2021-11-03 02:54 | disposition home or self-care (01) ==
PROVIDERS: Emergency Provider Emergency Medicine; PCP Family Medicine
DX: S43.402A Unspecified sprain of left shoulder joint, initial encounter (principal); M62.838 Other muscle spasm; V89.2XXA Person injured in unspecified motor-vehicle accident, traffic, initial encounter
CPT/HCPCS: 71046; 73030; 96372; 99283; 99284; J1885

== ENCOUNTER → 2021-11-10 09:40 | Outpatient (CLI) | payer OTHER, MEDICAID, SELFPAY ==
--- NOTE | 2021-11-10 09:43 | DI.RAD.S_ITS ---
PROCEDURE: XR ELBOW LT MIN 3V INDICATIONS: Left elbow pain TECHNIQUE: 3 views of the elbow were acquired. COMPARISON: None. FINDINGS: Bones: No fractures or dislocations. No suspicious bony lesions. Soft tissues: No elbow joint effusion. No suspicious soft tissue calcifications. IMPRESSION: No fracture. No osseous lesion. If symptoms and/or clinical suspicion for pathology persists, further assessment with repeat radiographs (7-10 days) or advanced imaging (e.g. CT, MRI or bone scan) should be considered. Dictated by: Telma Bill MD, PhD on 11/10/2021 at 17:21 Approved by: Telma Bill MD, PhD on 11/10/2021 at 17:21
== END ==
PROVIDERS: PCP Family Medicine; Referring Provider Family Medicine; Visit Provider Family Medicine
DX: G89.29 Other chronic pain; M25.522 Pain in left elbow
CPT/HCPCS: 73080

== ENCOUNTER 2022-03-09 11:48 | Emergency (ER) | payer OTHER, MEDICAID, SELFPAY ==
[2022-03-09 12:03] VITALS: BP 125/77; PULSE 75; RESP 16; TEMP 36.4; O2SAT 99; BMI 24.3
[2022-03-09 12:38] LABS: Add Manual Diff / Slide Review NO; Basophils Absolute Auto 0 /uL (0-100); Basophils Percent Auto 0.5 % (0-2); Eosinophils Absolute Auto 100 /uL (0-450); Eosinophils Percent Auto 1.2 % (2-4); Hematocrit 45.7 % (41-53); Hemoglobin 15.6 g/dL (13.5-17.5); Lymphocytes Absolute Auto 1800 /uL (1100-4500); Lymphocytes Percent Auto 36.3 % (25-40); Mean Corpuscular HGB Conc 34.1 % (30-36); Mean Corpuscular Hemoglobin 31.1 PG (26-34); Mean Corpuscular Volume 91.1 fL (80-100); Monocytes Absolute Auto 500 /uL (0-900); Monocytes Percent Auto 10.3 % (3-14); Neutrophils Absolute Auto 2500 /uL (1500-7000); Neutrophils Percent Auto 51.7 % (50-75); Platelet Count 189 X10^3/uL (150-400); Red Blood Cell Count 5.01 X10^6/uL (4.5-5.9); White Blood Cell Count 4.8 X10^3/uL (4.5-11.0)
[2022-03-09 12:52] LABS: Alanine Aminotransferase 55 IU/L (<50); Albumin 4.4 g/dL (3.5-5.0); Albumin Globulin Ratio 1.3 (1.0-2.8); Alkaline Phosphatase 62 U/L (38-126); Aspartate Aminotransferase 49 IU/L (17-59); BUN Creatinine Ratio 18.8 (6-22); Bilirubin Total 0.5 mg/dL (0.2-1.3); Blood Urea Nitrogen 13 mg/dL (9-20); Calcium 9.9 mg/dL (8.4-10.2); Carbon Dioxide 26 mmol/L (22-32); Chloride 103 mmol/L (98-107); Estimated Glomerular Filt Rate > 60 mL/min (>60); Globulin 3.3 g/dL (1.7-4.1); Glucose 91 mg/dL (70-100); HEMOLYSIS 26 (0-50); Lipase 51 U/L (23-300); Potassium 3.8 mmol/L (3.4-5.1); Sodium 142 mmol/L (137-145); Total Protein 7.7 g/dL (6.3-8.2)
[2022-03-09 12:55] LABS: Appearance Urine UA CLEAR; Bilirubin Urine UA NEGATIVE (NEGATIVE); Color Urine UA YELLOW; Glucose Urine UA NEGATIVE (Negative); Ketones Urine UA NEGATIVE (NEGATIVE); Leukocyte Esterase Urine UA NEGATIVE (NEGATIVE); Nitrite Urine UA NEGATIVE (Negative); Occult Blood Urine UA NEGATIVE (Negative); Protein Urine UA NEGATIVE (Negative); Specific Gravity Urine UA <=1.005 (1.000-1.035); Urobilinogen Urine UA 0.2 E.U./dL (0.2); pH Urine UA 5.5 (4.5-8.0)
[2022-03-09 12:59] LABS: Bacteria Urine None Seen; Culture Indicated Urine Cult Not Indicated; RBC Urine None Seen (0-5/HPF); Urine Comments Microscopic Normal; WBC Urine None Seen (0-5/HPF)
[2022-03-09 14:17] LABS: Adenovirus F 40/41 Not Detected (Not Detect); Astrovirus Not Detected (Not Detect); Campylobacter Not Detected (Not Detect); Clostridium difficile toxin AB Not Detected (Not Detect); Cryptosporidium Not Detected (Not Detect); Cyclospora cayetanensis Not Detected (Not Detect); Entamoeba histolytica Not Detected (Not Detect); Enteroaggregative E.coli Not Detected (Not Detect); Enteropathogenic E.coli Not Detected (Not Detect); Enterotoxigenic E.coli It/st Not Detected (Not Detect); Giardia lamblia Not Detected (Not Detect); Norovirus GI/GII Not Detected (Not Detect); Plesiomonsa shigelloides Not Detected (Not Detect); Rotavirus A Not Detected (Not Detect); Salmonella Not Detected (Not Detect); Sapovirus Not Detected (Not Detect); Shiga-like toxin-prod E.coli Not Detected (Not Detect); Shigella/Enteroinvasive E.coli Not Detected (Not Detect); Vibrio Not Detected (Not Detect); Vibrio cholerae Not Detected (Not Detect); Yersinia enterocolitica Not Detected (Not Detect)
[2022-03-09 14:55] LABS: Occult Blood 1 Negative (Negative); Sample 1 Time 1230
[2022-03-09 16:03] VITALS: BP 122/76; PULSE 60; RESP 20; O2SAT 100
--- NOTE | 2022-03-09 18:43 | ED_ITS ---
HPI - Nausea/Vomiting/Diarrhea <Cheyenne Carlos PA-C - Last Filed: 03/09/22 18:48> General Chief complaint: Nausea/Vomiting/Diarrhea Stated complaint: abd. pain Time Seen by Provider: 03/09/22 13:19 Source: patient Mode of arrival: Ambulatory History of Present Illness HPI Narrative: 32-year-old male with no reported past medical history presents to the ED with 2 days of diarrhea. Patient states that he ate some salmon that he bought from a grocery store last night, following which she has been having frequent diarrhea. Denies hematochezia, melena. Endorses some nausea, denies vomiting, endorses abdominal cramping. Denies fever, chills. Patient denies chest pain, shortness of breath, lightheadedness, dizziness, syncope. Related Data Previous Rx's Medication Instructions Recorded clotrimazole 1 % topical cream 1 applictn topical BID #30 grams 11/23/19 ketorolac 10 mg tablet 10 mg PO TID PRN pain #14 tabs 08/20/20 cyclobenzaprine 10 mg tablet 10 mg PO TID PRN muscle spasm #14 11/03/21 tabs ketorolac 10 mg tablet 10 mg PO Q6H PRN pain #14 tabs 11/03/21 Allergies Allergy/AdvReac Type Severity Reaction Status Date / Time No Known Drug Allergies Allergy Verified 11/10/21 09:20 Review of Systems <Cheyenne Carlos PA-C - Last Filed: 03/09/22 18:48> Review of Systems ROS Unobtainable: All systems reviewed & are unremarkable except as noted in HPI and below Constitutional Constitutional: Denies chills, Denies fatigue, Denies fever(s), Denies frequent falls, Denies lethargy and Denies weakness Eyes Eyes: Denies change in vision, Denies eye discharge, Denies irritation and Denies loss of vision ENT Ears, Nose, Mouth, and Throat: Denies change in voice, Denies dizziness, Denies neck pain, Denies sore throat and Denies throat swelling Cardiovascular Cardiovascular: Denies chest pain, Denies irregular heart rhythm, Denies lightheadedness, Denies palpitations, Denies dyspnea, Denies dyspnea on exertion and Denies orthopnea Respiratory Respiratory: Denies cough, Denies dyspnea, Denies dyspnea on exertion and Denies wheezing Gastrointestinal Gastrointestinal: Denies abdominal pain, Denies change in bowel habits, Reports diarrhea, Reports nausea and Denies vomiting Genitourinary Genitourinary: Denies hematuria, Denies flank pain, Denies urinary incontinence and Denies urinary urgency Musculoskeletal Musculoskeletal: Denies back pain, Denies muscle weakness, Denies neck pain, Denies numbness and Denies tingling Integumentary/Breasts Skin/Breast: Denies pruritus, Denies erythema, Denies rash and Denies wounds Neurologic Neurologic: Denies behavioral changes, Denies confusion, Denies dizziness, Denies frequent falls, Denies loss of vision, Denies numbness, Denies tingling and Denies weakness Psychiatric Psychiatric: Denies anxiety, Denies behavioral changes, Denies confusion, Denies depression, Denies homicidal ideation and Denies suicidal ideation Endocrine Endocrine: Denies fatigue, Denies flushing and Denies palpitations Hematologic/Lymphatic Hematologic/Lymphatic: Denies easy bruising Allergic/Immunologic Allergic/Immunologic: Denies urticaria, Denies throat swelling and Denies wheezing Patient History <Cheyenne Carlos PA-C - Last Filed: 03/09/22 18:48> Medical History Chronic back pain (2003) Healthy adult Shoulder pain (2004) Surgical History No history of previous surgery (04/04/17) Family History Father Age: 55 H/O knee surgery Mother Stomach problems Chest problem Social History Smoking Status: Never smoker Smoking Status: Never smoker alcohol intake frequency: a few times a week Substance Use Type: does not use Exam <Cheyenne Carlos PA-C - Last Filed: 03/09/22 18:48> Narrative Exam Narrative: Const General:?cooperative, healthy appearing and comfortable [facility] Head:?normal to inspection Ears:?hearing grossly normal bilaterally Nose:?external nose normal Face and sinus:?normal facial exam and sinuses nontender Mouth:?oral mucosae normal Throat:?posterior oropharynx normal Eyes General:?appearance normal, both eyes and all related structures Neck Neck:?normal visual inspection and no lymphadenopathy noted Resp Effort & Inspection:?normal respiratory effort Auscultation:?clear to auscultation bilaterally Cardio Rate:?regular rate Rhythm:?regular rhythm GI Abdomen is soft, nondistended, nontender to palpation. Neuro General:?patient alert, patient awake and patient oriented x3 Initial Vital Signs Initial Vital Signs: Vital Signs Temperature 97.5 F L 03/09/22 12:03 Pulse Rate 75 03/09/22 12:03 Respiratory Rate 16 03/09/22 12:03 Blood Pressure 125/77 03/09/22 12:03 Pulse Oximetry 99 03/09/22 12:03 Oxygen Delivery Method 03/09/22 12:03 <Dione Myers DO - Last Filed: 03/12/22 14:42> Initial Vital Signs Initial Vital Signs: Vital Signs Temperature 97.5 F L 03/09/22 12:03 Pulse Rate 75 03/09/22 12:03 Respiratory Rate 16 03/09/22 12:03 Blood Pressure 125/77 03/09/22 12:03 Pulse Oximetry 99 03/09/22 12:03 Oxygen Delivery Method 03/09/22 12:03 Course <Cheyenne Carlos PA-C - Last Filed: 03/09/22 18:48> Orders Ordered: ED Orders 03/09/22 12:16 Complete Blood Count AUTO DIFF Stat Comprehensive Metabolic Panel Stat Lipase Stat 03/09/22 12:30 GI Panel (Film Array) Stat Occult Blood Screen Stat Urinalysis and Microscopic Stat Vital Signs Vital signs: Vital Signs - 8 hr 03/09/22 12:03 03/09/22 16:03 Temperature 97.5 F L Pulse Rate 75 60 Respiratory Rate 16 20 Blood Pressure 125/77 122/76 Pulse Oximetry 99 100 Oxygen Delivery Method Room Air Room Air <Dione Myers DO - Last Filed: 03/12/22 14:42> Orders Ordered: ED Orders 03/09/22 12:16 Complete Blood Count AUTO DIFF Stat Comprehensive Metabolic Panel Stat Lipase Stat 03/09/22 12:30 GI Panel (Film Array) Stat Occult Blood Screen Stat Urinalysis and Microscopic Stat Vital Signs Vital signs: Vital Signs - 8 hr 03/09/22 12:03 03/09/22 16:03 Temperature 97.5 F L Pulse Rate 75 60 Respiratory Rate 16 20 Blood Pressure 125/77 122/76 Pulse Oximetry 99 100 Oxygen Delivery Method Room Air Room Air MDM - Nausea/Vomiting/Diarrhea <Cheyenne Carlos PA-C - Last Filed: 03/09/22 18:48> Lab Data Result diagrams: 03/09/22 12:16 03/09/22 12:16 Labs: Lab Results 03/09/22 03/09/22 03/09/22 Range/Units 12:16 12:16 12:30 WBC 4.8 (4.5-11.0) X10^3/uL RBC 5.01 (4.5-5.9) X10^6/uL Hgb 15.6 (13.5-17.5) g/dL Hct 45.7 (41-53) % MCV 91.1 (80-100) fL MCH 31.1 (26-34) PG MCHC 34.1 (30-36) % RDW 14.0 (11.6-14.8) % Plt Count 189 (150-400) X10^3/uL Neut % (Auto) 51.7 (50-75) % Lymph % (Auto) 36.3 (25-40) % [place] % (Auto) 10.3 (3-14) % Eos % (Auto) 1.2 L (2-4) % Baso % (Auto) 0.5 (0-2) % Neut # (Auto) 2500 (1456-0553) /uL Lymph # (Auto) 1800 (3991-2312) /uL [place] # (Auto) 500 (0-900) /uL Eos # (Auto) 100 (0-450) /uL Baso # (Auto) 0 (0-100) /uL Sodium 142 (137-145) mmol/L Potassium 3.8 (3.4-5.1) mmol/L Chloride 103 (98-107) mmol/L Carbon Dioxide 26 (22-32) mmol/L BUN 13 (9-20) mg/dL Creatinine 0.69 (0.66-1.25) mg/dL Estimated GFR > 60 (>60) mL/min BUN/Creatinine Ratio 18.8 (6-22) Glucose 91 (70-100) mg/dL Calcium 9.9 (8.4-10.2) mg/dL Total Bilirubin 0.5 (0.2-1.3) mg/dL AST 49 (17-59) IU/L ALT 55 H (<50) IU/L Alkaline Phosphatase 62 (38-126) U/L Total Protein 7.7 (6.3-8.2) g/dL Albumin 4.4 (3.5-5.0) g/dL Globulin 3.3 (1.7-4.1) g/dL Albumin/Globulin Ratio 1.3 (1.0-2.8) Lipase 51 (23-300) U/L Urine Color Urine Appearance Urine pH (4.5-8.0) Ur Specific [place] (1.000-1.035) Urine Protein (Negative) Urine Glucose (UA) (Negative) g/dL Urine Ketones (NEGATIVE) Urine Occult Blood (Negative) Urine Nitrate (Negative) Urine Bilirubin (NEGATIVE) Urine Urobilinogen (0.2) E.U./dL Ur Leukocyte Esterase (NEGATIVE) Urine RBC (0-5/HPF) Urine WBC (0-5/HPF) Urine Bacteria (None) Ur Culture Indicated? Micro UA Comment Stool Occult Blood (Negative) Stl C. cayetanensis PCR Not detected (Not Detect) Stool Rotavirus (PCR) Not detected (Not Detect) Stool Adenovirus (PCR) Not detected (Not Detect) Stool Astrovirus (PCR) Not detected (Not Detect) Stool Cryptosporidium PCR Not detected (Not Detect) Stl E.coli Shiga Tox PCR Not detected (Not Detect) St Sh/Enteroin Ecoli PCR Not detected (Not Detect) Stool E coli O157 PCR Not Reportable Stl Enterotoxigenic E PCR Not detected (Not Detect) Stool EPEC (PCR) Not detected (Not Detect) Stl E. histolytica PCR Not detected (Not Detect) Stool Giardia Lamblia PCR Not detected (Not Detect) Stool Sapovirus (PCR) Not detected (Not Detect) Stl P. shigelloides PCR Not detected (Not Detect) St Y.enterocolitica PCR Not detected (Not Detect) Stool Vibrio (PCR) Not detected (Not Detect) Stl Vibrio cholerae PCR Not detected (Not Detect) Stl Enteroaggr Ecoli PCR Not detected (Not Detect) Stl Norovirus GI/GII PCR Not detected (Not Detect) Campylobacter (PCR) Not detected (Not Detect) C. difficile Tox (PCR) Not detected (Not Detect) Salmonella (PCR) Not detected (Not Detect) 03/09/22 03/09/22 Range/Units 12:30 12:30 WBC (4.5-11.0) X10^3/uL RBC (4.5-5.9) X10^6/uL Hgb (13.5-17.5) g/dL Hct (41-53) % MCV (80-100) fL MCH (26-34) PG MCHC (30-36) % RDW (11.6-14.8) % Plt Count (150-400) X10^3/uL Neut % (Auto) (50-75) % Lymph % (Auto) (25-40) % [place] % (Auto) (3-14) % Eos % (Auto) (2-4) % Baso % (Auto) (0-2) % Neut # (Auto) (6065-2973) /uL Lymph # (Auto) (6442-0386) /uL [place] # (Auto) (0-900) /uL Eos # (Auto) (0-450) /uL Baso # (Auto) (0-100) /uL Sodium (137-145) mmol/L Potassium (3.4-5.1) mmol/L Chloride (98-107) mmol/L Carbon Dioxide (22-32) mmol/L BUN (9-20) mg/dL Creatinine (0.66-1.25) mg/dL Estimated GFR (>60) mL/min BUN/Creatinine Ratio (6-22) Glucose (70-100) mg/dL Calcium (8.4-10.2) mg/dL Total Bilirubin (0.2-1.3) mg/dL AST (17-59) IU/L ALT (<50) IU/L Alkaline Phosphatase (38-126) U/L Total Protein (6.3-8.2) g/dL Albumin (3.5-5.0) g/dL Globulin (1.7-4.1) g/dL Albumin/Globulin Ratio (1.0-2.8) Lipase (23-300) U/L Urine Color Yellow Urine Appearance Clear Urine pH 5.5 (4.5-8.0) Ur Specific [place] <=1.005 (1.000-1.035) Urine Protein Negative (Negative) Urine Glucose (UA) Negative (Negative) g/dL Urine Ketones Negative (NEGATIVE) Urine Occult Blood Negative (Negative) Urine Nitrate Negative (Negative) Urine Bilirubin Negative (NEGATIVE) Urine Urobilinogen 0.2 (0.2) E.U./dL Ur Leukocyte Esterase Negative (NEGATIVE) Urine RBC None seen (0-5/HPF) Urine WBC None seen (0-5/HPF) Urine Bacteria None seen (None) Ur Culture Indicated? Cult not indicated Micro UA Comment Microscopic normal Stool Occult Blood Negative (Negative) Stl C. cayetanensis PCR (Not Detect) Stool Rotavirus (PCR) (Not Detect) Stool Adenovirus (PCR) (Not Detect) Stool Astrovirus (PCR) (Not Detect) Stool Cryptosporidium PCR (Not Detect) Stl E.coli Shiga Tox PCR (Not Detect) St Sh/Enteroin Ecoli PCR (Not Detect) Stool E coli O157 PCR Stl Enterotoxigenic E PCR (Not Detect) Stool EPEC (PCR) (Not Detect) Stl E. histolytica PCR (Not Detect) Stool Giardia Lamblia PCR (Not Detect) Stool Sapovirus (PCR) (Not Detect) Stl P. shigelloides PCR (Not Detect) St Y.enterocolitica PCR (Not Detect) Stool Vibrio (PCR) (Not Detect) Stl Vibrio cholerae PCR (Not Detect) Stl Enteroaggr Ecoli PCR (Not Detect) Stl Norovirus GI/GII PCR (Not Detect) Campylobacter (PCR) (Not Detect) C. difficile Tox (PCR) (Not Detect) Salmonella (PCR) (Not Detect) MDM Narrative Medical decision making narrative: 32-year-old male with no reported past medical history presents to the ED with 2 days of diarrhea. Concern for gastroenteritis versus dehydration versus metabolic derangement. Workup was largely unremarkable. GI panel negative. Patient appears well hydrated on physical exam. Patient is able to tolerate p.o. well. Will discharge home with recommendations for brat diet, continued hydration. ED return precautions were also discussed with patient. Patient verbalized understanding. <Dione Myers, DO - Last Filed: 03/12/22 14:42> Lab Data Labs: Lab Results 03/09/22 03/09/22 03/09/22 Range/Units 12:16 12:16 12:30 WBC 4.8 (4.5-11.0) X10^3/uL RBC 5.01 (4.5-5.9) X10^6/uL Hgb 15.6 (13.5-17.5) g/dL Hct 45.7 (41-53) % MCV 91.1 (80-100) fL MCH 31.1 (26-34) PG MCHC 34.1 (30-36) % RDW 14.0 (11.6-14.8) % Plt Count 189 (150-400) X10^3/uL Neut % (Auto) 51.7 (50-75) % Lymph % (Auto) 36.3 (25-40) % [place] % (Auto) 10.3 (3-14) % Eos % (Auto) 1.2 L (2-4) % Baso % (Auto) 0.5 (0-2) % Neut # (Auto) 2500 (4775-5307) /uL Lymph # (Auto) 1800 (2006-1864) /uL [place] # (Auto) 500 (0-900) /uL Eos # (Auto) 100 (0-450) /uL Baso # (Auto) 0 (0-100) /uL Sodium 142 (137-145) mmol/L Potassium 3.8 (3.4-5.1) mmol/L Chloride 103 (98-107) mmol/L Carbon Dioxide 26 (22-32) mmol/L BUN 13 (9-20) mg/dL Creatinine 0.69 (0.66-1.25) mg/dL Estimated GFR > 60 (>60) mL/min BUN/Creatinine Ratio 18.8 (6-22) Glucose 91 (70-100) mg/dL Calcium 9.9 (8.4-10.2) mg/dL Total Bilirubin 0.5 (0.2-1.3) mg/dL AST 49 (17-59) IU/L ALT 55 H (<50) IU/L Alkaline Phosphatase 62 (38-126) U/L Total Protein 7.7 (6.3-8.2) g/dL Albumin 4.4 (3.5-5.0) g/dL Globulin 3.3 (1.7-4.1) g/dL Albumin/Globulin Ratio 1.3 (1.0-2.8) Lipase 51 (23-300) U/L Urine Color Urine Appearance Urine pH (4.5-8.0) Ur Specific [place] (1.000-1.035) Urine Protein (Negative) Urine Glucose (UA) (Negative) g/dL Urine Ketones (NEGATIVE) Urine Occult Blood (Negative) Urine Nitrate (Negative) Urine Bilirubin (NEGATIVE) Urine Urobilinogen (0.2) E.U./dL Ur Leukocyte Esterase (NEGATIVE) Urine RBC (0-5/HPF) Urine WBC (0-5/HPF) Urine Bacteria (None) Ur Culture Indicated? Micro UA Comment Stool Occult Blood (Negative) Stl C. cayetanensis PCR Not detected (Not Detect) Stool Rotavirus (PCR) Not detected (Not Detect) Stool Adenovirus (PCR) Not detected (Not Detect) Stool Astrovirus (PCR) Not detected (Not Detect) Stool Cryptosporidium PCR Not detected (Not Detect) Stl E.coli Shiga Tox PCR Not detected (Not Detect) St Sh/Enteroin Ecoli PCR Not detected (Not Detect) Stool E coli O157 PCR Not Reportable Stl Enterotoxigenic E PCR Not detected (Not Detect) Stool EPEC (PCR) Not detected (Not Detect) Stl E. histolytica PCR Not detected (Not Detect) Stool Giardia Lamblia PCR Not detected (Not Detect) Stool Sapovirus (PCR) Not detected (Not Detect) Stl P. shigelloides PCR Not detected (Not Detect) St Y.enterocolitica PCR Not detected (Not Detect) Stool Vibrio (PCR) Not detected (Not Detect) Stl Vibrio cholerae PCR Not detected (Not Detect) Stl Enteroaggr Ecoli PCR Not detected (Not Detect) Stl Norovirus GI/GII PCR Not detected (Not Detect) Campylobacter (PCR) Not detected (Not Detect) C. difficile Tox (PCR) Not detected (Not Detect) Salmonella (PCR) Not detected (Not Detect) 03/09/22 03/09/22 Range/Units 12:30 12:30 WBC (4.5-11.0) X10^3/uL RBC (4.5-5.9) X10^6/uL Hgb (13.5-17.5) g/dL Hct (41-53) % MCV (80-100) fL MCH (26-34) PG MCHC (30-36) % RDW (11.6-14.8) % Plt Count (150-400) X10^3/uL Neut % (Auto) (50-75) % Lymph % (Auto) (25-40) % [place] % (Auto) (3-14) % Eos % (Auto) (2-4) % Baso % (Auto) (0-2) % Neut # (Auto) (9559-0642) /uL Lymph # (Auto) (9241-0422) /uL [place] # (Auto) (0-900) /uL Eos # (Auto) (0-450) /uL Baso # (Auto) (0-100) /uL Sodium (137-145) mmol/L Potassium (3.4-5.1) mmol/L Chloride (98-107) mmol/L Carbon Dioxide (22-32) mmol/L BUN (9-20) mg/dL Creatinine (0.66-1.25) mg/dL Estimated GFR (>60) mL/min BUN/Creatinine Ratio (6-22) Glucose (70-100) mg/dL Calcium (8.4-10.2) mg/dL Total Bilirubin (0.2-1.3) mg/dL AST (17-59) IU/L ALT (<50) IU/L Alkaline Phosphatase (38-126) U/L Total Protein (6.3-8.2) g/dL Albumin (3.5-5.0) g/dL Globulin (1.7-4.1) g/dL Albumin/Globulin Ratio (1.0-2.8) Lipase (23-300) U/L Urine Color Yellow Urine Appearance Clear Urine pH 5.5 (4.5-8.0) Ur Specific [place] <=1.005 (1.000-1.035) Urine Protein Negative (Negative) Urine Glucose (UA) Negative (Negative) g/dL Urine Ketones Negative (NEGATIVE) Urine Occult Blood Negative (Negative) Urine Nitrate Negative (Negative) Urine Bilirubin Negative (NEGATIVE) Urine Urobilinogen 0.2 (0.2) E.U./dL Ur Leukocyte Esterase Negative (NEGATIVE) Urine RBC None seen (0-5/HPF) Urine WBC None seen (0-5/HPF) Urine Bacteria None seen (None) Ur Culture Indicated? Cult not indicated Micro UA Comment Microscopic normal Stool Occult Blood Negative (Negative) Stl C. cayetanensis PCR (Not Detect) Stool Rotavirus (PCR) (Not Detect) Stool Adenovirus (PCR) (Not Detect) Stool Astrovirus (PCR) (Not Detect) Stool Cryptosporidium PCR (Not Detect) Stl E.coli Shiga Tox PCR (Not Detect) St Sh/Enteroin Ecoli PCR (Not Detect) Stool E coli O157 PCR Stl Enterotoxigenic E PCR (Not Detect) Stool EPEC (PCR) (Not Detect) Stl E. histolytica PCR (Not Detect) Stool Giardia Lamblia PCR (Not Detect) Stool Sapovirus (PCR) (Not Detect) Stl P. shigelloides PCR (Not Detect) St Y.enterocolitica PCR (Not Detect) Stool Vibrio (PCR) (Not Detect) Stl Vibrio cholerae PCR (Not Detect) Stl Enteroaggr Ecoli PCR (Not Detect) Stl Norovirus GI/GII PCR (Not Detect) Campylobacter (PCR) (Not Detect) C. difficile Tox (PCR) (Not Detect) Salmonella (PCR) (Not Detect) Discharge Plan Departure Patient Disposition: Home Clinical Impression: Gastroenteritis Instructions: DI for Bacterial Gastroenteritis -- Adult Activity Restrictions/Additional Instructions: You were evaluated in the ED today for diarrhea. Your labs, urine, stool were normal. Your symptoms are likely due to food poisoning or gastroenteritis that is caused by a virus. Please continue to stay well hydrated, drink a lot of water. You may eat a BRAT diet consisting of bread, rice, apples, toast. Please return to the ED if you have worsening diarrhea, you are unable to keep down fluids, you have uncontrollable vomiting. Prescriptions: No Action clotrimazole 1 % cream 1 applictn TOP BID Qty: 30 2RF ketorolac 10 mg tablet 10 mg PO TID PRN (Reason: pain) Qty: 14 0RF cyclobenzaprine 10 mg tablet 10 mg PO TID PRN (Reason: muscle spasm) Qty: 14 0RF ketorolac 10 mg tablet 10 mg PO Q6H PRN (Reason: pain) Qty: 14 0RF Referrals: Chantelle Hall MD [Primary Care Provider] - Visit Report Forms: Patient Portal/API <Dione Myers DO - Last Filed: 03/12/22 14:42> Cosign ED Attending Cosmichaelature Attestation: I was immediately available in the department for consultation. Documentation has been reviewed.
[2022-03-09 18:48] VITALS: BP 118/78; PULSE 80; RESP 16; O2SAT 99
== END 2022-03-09 18:48 | disposition home or self-care (01) ==
PROVIDERS: Emergency Medicine; Emergency Provider Student in an Organized Health Care Education/Training Program; PCP Family Medicine
DX: K52.9 Noninfective gastroenteritis and colitis, unspecified (principal)
CPT/HCPCS: 36415; 80053; 81001; 82270; 83690; 85025; 87507; 99283

== ENCOUNTER 2022-04-12 15:17 | Emergency (ER) | payer OTHER, MEDICAID, SELFPAY ==
[2022-04-12 15:21] VITALS: BP 138/83; PULSE 74; RESP 16; TEMP 36.7; O2SAT 100
[2022-04-12 16:20] LABS: Influenza A - CEPHEID Flu A NEGATIVE (NEGATIVE); Influenza B - CEPHEID Flu B NEGATIVE (NEGATIVE); Respiratory Syncytial Virus POSITIVE (Negative)
[2022-04-12 16:22] LABS: COVID-19 CEPHEID 4-PLEX PCR Negative (Negative)
--- NOTE | 2022-04-12 19:28 | ED_ITS ---
HPI - URI/Sore Throat <Cheyenne Carlos PA-C - Last Filed: 04/12/22 19:53> General Chief Complaint: Upper Respiratory Symptoms Stated Complaint: Worsening illness, Headaches Time Seen by Provider: 04/12/22 19:20 Source: patient Mode of arrival: Ambulatory History of Present Illness HPI Narrative: 32-year-old male with no reported past medical history presents to the ED with 6 days of cough, runny nose, sore throat. Patient denies fever, chills, chest pain, shortness of breath, nausea, vomiting, abdominal pain, diarrhea, lightheadedness, dizziness, syncope. Patient states that his most bothersome symptom is the cough, which has been mildly responsive to Sudafed. Related Data Previous Rx's Medication Instructions Recorded clotrimazole 1 % topical cream 1 applictn topical BID #30 grams 11/23/19 ketorolac 10 mg tablet 10 mg PO TID PRN pain #14 tabs 08/20/20 cyclobenzaprine 10 mg tablet 10 mg PO TID PRN muscle spasm #14 11/03/21 tabs ketorolac 10 mg tablet 10 mg PO Q6H PRN pain #14 tabs 11/03/21 benzonatate 200 mg capsule 200 mg PO TID PRN cough #30 caps 04/12/22 Allergies Allergy/AdvReac Type Severity Reaction Status Date / Time No Known Drug Allergies Allergy Verified 11/10/21 09:20 Review of Systems <Cheyenne Carlos PA-C - Last Filed: 04/12/22 19:53> Review of Systems ROS Unobtainable: All systems reviewed & are unremarkable except as noted in HPI and below Constitutional Constitutional: Denies chills, Reports fatigue, Denies fever(s), Denies frequent falls, Reports lethargy and Denies weakness Eyes Eyes: Denies change in vision, Denies eye discharge, Denies irritation and Denies loss of vision ENT Ears, Nose, Mouth, and Throat: Denies change in voice, Denies dizziness, Reports nasal congestion, Reports nasal discharge, Denies neck pain, Reports sore throat and Denies throat swelling Cardiovascular Cardiovascular: Denies chest pain, Denies irregular heart rhythm, Denies lightheadedness, Denies palpitations, Denies dyspnea, Denies dyspnea on exertion and Denies orthopnea Respiratory Respiratory: Reports cough, Denies dyspnea, Denies dyspnea on exertion and Denies wheezing Gastrointestinal Gastrointestinal: Denies abdominal pain, Denies change in bowel habits, Denies diarrhea, Denies nausea and Denies vomiting Genitourinary Genitourinary: Denies hematuria, Denies flank pain, Denies urinary incontinence and Denies urinary urgency Musculoskeletal Musculoskeletal: Denies back pain, Denies muscle weakness, Denies neck pain, Denies numbness and Denies tingling Integumentary/Breasts Skin/Breast: Denies pruritus, Denies erythema, Denies rash and Denies wounds Neurologic Neurologic: Denies behavioral changes, Denies confusion, Denies dizziness, Denies frequent falls, Denies loss of vision, Denies numbness, Denies tingling and Denies weakness Psychiatric Psychiatric: Denies anxiety, Denies behavioral changes, Denies confusion, Denies depression, Denies homicidal ideation and Denies suicidal ideation Endocrine Endocrine: Reports fatigue, Denies flushing and Denies palpitations Hematologic/Lymphatic Hematologic/Lymphatic: Denies easy bruising Allergic/Immunologic Allergic/Immunologic: Denies urticaria, Denies throat swelling and Denies wheezing Patient History <Cheyenne Carlos PA-C - Last Filed: 04/12/22 19:53> Medical History Chronic back pain (2003) Healthy adult Shoulder pain (2004) Surgical History No history of previous surgery (04/04/17) Family History Father Age: 55 H/O knee surgery Mother Stomach problems Chest problem Social History Smoking Status: Never smoker Smoking Status: Never smoker alcohol intake frequency: a few times a week Substance Use Type: does not use Exam <Cheyenne Carlos PA-C - Last Filed: 04/12/22 19:53> Narrative Exam Narrative: Const General:?cooperative, healthy appearing and comfortable [facility] Head:?normal to inspection Ears:?hearing grossly normal bilaterally Nose:?external nose normal Face and sinus:?normal facial exam and sinuses nontender Mouth:?oral mucosae normal Throat:?posterior oropharynx normal Eyes General:?appearance normal, both eyes and all related structures Neck Neck:?normal visual inspection and no lymphadenopathy noted Resp Effort & Inspection:?normal respiratory effort Auscultation:?clear to auscultation bilaterally Cardio Rate:?regular rate Rhythm:?regular rhythm Neuro General:?patient alert, patient awake and patient oriented x3 Initial Vital Signs Initial Vital Signs: Vital Signs Temperature 98.0 F 04/12/22 15:21 Pulse Rate 74 04/12/22 15:21 Respiratory Rate 16 04/12/22 15:21 Blood Pressure 138/83 04/12/22 15:21 Pulse Oximetry 100 04/12/22 15:21 Oxygen Delivery Method 04/12/22 15:21 <Tarun Rose DO - Last Filed: 04/12/22 20:56> Initial Vital Signs Initial Vital Signs: Vital Signs Temperature 98.0 F 04/12/22 15:21 Pulse Rate 74 04/12/22 15:21 Respiratory Rate 16 04/12/22 15:21 Blood Pressure 138/83 04/12/22 15:21 Pulse Oximetry 100 04/12/22 15:21 Oxygen Delivery Method 04/12/22 15:21 Course <Cheyenne Carlos PA-C - Last Filed: 04/12/22 19:53> Orders Ordered: ED Orders 04/12/22 14:59 Covid-19 + FLU A/B + RSV - PCR Stat Vital Signs Vital signs: Vital Signs - 8 hr 04/12/22 15:21 Temperature 98.0 F Pulse Rate 74 Respiratory Rate 16 Blood Pressure 138/83 Pulse Oximetry 100 Oxygen Delivery Method Room Air <DO Raven Ventura Last Filed: 04/12/22 20:56> Orders Ordered: ED Orders 04/12/22 14:59 Covid-19 + FLU A/B + RSV - PCR Stat Vital Signs Vital signs: Vital Signs - 8 hr 04/12/22 15:21 Temperature 98.0 F Pulse Rate 74 Respiratory Rate 16 Blood Pressure 138/83 Pulse Oximetry 100 Oxygen Delivery Method Room Air MDM - URI/Sore Throat <Cheyenne Carlos PA-C - Last Filed: 04/12/22 19:53> Lab Data Labs: Lab Results 04/12/22 Range/Units 14:59 SARS-CoV-2 (PCR) Negative (Negative) Influenza A (RT-PCR) Flu a negative (NEGATIVE) Influenza B (RT-PCR) Flu b negative (NEGATIVE) RSV (PCR) Positive A (Negative) MDM Narrative Medical decision making narrative: 32-year-old male with no reported past medical history presents to the ED with 6 days of cough, runny nose, sore throat. Respiratory panel was positive for RSV. Patient's physical exam is reassuring. Supportive measures discussed with patient. Prescribed Tessalon Perles for cough. ED return precautions were discussed with patient. Patient verbalized understanding. <Tarun Rose DO - Last Filed: 04/12/22 20:56> Lab Data Labs: Lab Results 04/12/22 Range/Units 14:59 SARS-CoV-2 (PCR) Negative (Negative) Influenza A (RT-PCR) Flu a negative (NEGATIVE) Influenza B (RT-PCR) Flu b negative (NEGATIVE) RSV (PCR) Positive A (Negative) Discharge Plan Departure Patient Disposition: Home Clinical Impression: RSV infection Instructions: DI for Respiratory Syncytial Virus -- Adults Activity Restrictions/Additional Instructions: You were evaluated in the ED today for a cough, runny nose, sore throat. Your respiratory panel was positive for RSV. You may take Tylenol, ibuprofen for aches and pains. You may take Tessalon Perles for the cough. Please return to the ED if you have worsening symptoms, trouble breathing, chest pain. Prescriptions: New benzonatate 200 mg capsule 200 mg PO TID PRN (Reason: cough) Qty: 30 0RF No Action clotrimazole 1 % cream 1 applictn TOP BID Qty: 30 2RF ketorolac 10 mg tablet 10 mg PO TID PRN (Reason: pain) Qty: 14 0RF cyclobenzaprine 10 mg tablet 10 mg PO TID PRN (Reason: muscle spasm) Qty: 14 0RF ketorolac 10 mg tablet 10 mg PO Q6H PRN (Reason: pain) Qty: 14 0RF Referrals: Chantelle Hall MD [Primary Care Provider] - Visit Report Forms: Patient Portal/API <Tarun Rose DO - Last Filed: 04/12/22 20:56> Cosign ED Attending Cosignature Attestation: Dr Rose Co-Sign Statement: I was available for consultation during this patient's emergency department visit. This chart is signed by myself for administrative purposes only. I did not have direct contact with this patient during this visit. They were seen independently by the APC.
== END 2022-04-12 19:35 | disposition home or self-care (01) ==
PROVIDERS: Emergency Medicine; Emergency Provider Student in an Organized Health Care Education/Training Program; PCP Family Medicine
DX: J06.9 Acute upper respiratory infection, unspecified (principal); B97.4 Respiratory syncytial virus as the cause of diseases classified elsewhere
CPT/HCPCS: 0241U; 99281; 99282

== ENCOUNTER → 2022-07-29 11:13 | Outpatient (CLI) | payer OTHER, MEDICAID, SELFPAY ==
[2022-07-29 12:05] LABS: Add Manual Diff / Slide Review NO; Basophils Absolute Auto 0 /uL (0-100); Basophils Percent Auto 0.5 % (0-2); Eosinophils Absolute Auto 100 /uL (0-450); Hemoglobin 14.9 g/dL (13.5-17.5); Lymphocytes Absolute Auto 1700 /uL (1100-4500); Lymphocytes Percent Auto 40.2 % (25-40); Mean Corpuscular HGB Conc 33.8 % (30-36); Mean Corpuscular Hemoglobin 30.7 PG (26-34); Mean Corpuscular Volume 90.7 fL (80-100); Monocytes Absolute Auto 500 /uL (0-900); Monocytes Percent Auto 10.9 % (3-14); Neutrophils Absolute Auto 1900 /uL (1500-7000); Neutrophils Percent Auto 46.4 % (50-75); Platelet Count 195 X10^3/uL (150-400); Red Blood Cell Count 4.85 X10^6/uL (4.5-5.9); Red Cell Distribution Width 13.8 % (11.6-14.8); White Blood Cell Count 4.1 X10^3/uL (4.5-11.0)
[2022-07-29 12:10] LABS: HEMOLYSIS < 15 (0-50); Iron 65 ug/dL (49-181)
[2022-07-29 12:19] LABS: Alanine Aminotransferase 92 IU/L (<50); Albumin 4.3 g/dL (3.5-5.0); Albumin Globulin Ratio 1.7 (1.0-2.8); Alkaline Phosphatase 69 U/L (38-126); Aspartate Aminotransferase 68 IU/L (17-59); Bilirubin Total 0.4 mg/dL (0.2-1.3); Blood Urea Nitrogen 11 mg/dL (9-20); Calcium 9.2 mg/dL (8.4-10.2); Carbon Dioxide 32 mmol/L (22-32); Chloride 105 mmol/L (98-107); Creatine Kinase 543 U/L (55-170); Estimated Glomerular Filt Rate > 60 mL/min (>60); Globulin 2.5 g/dL (1.7-4.1); Glucose 101 mg/dL (70-100); HEMOLYSIS < 15 (0-50); Sodium 141 mmol/L (137-145); Total Protein 6.8 g/dL (6.3-8.2)
[2022-07-29 12:24] LABS: Percent Iron Saturation 16 % (20-50); Total Iron Binding Capacity 416 ug/dL (261-462); Transferrin 297 mg/dL (206-381)
[2022-07-29 12:53] LABS: Ferritin 37 ng/mL (18-464)
[2022-07-29 13:07] LABS: Vitamin B12 439 pg/mL (239-931)
[2022-07-29 13:08] LABS: CKMB % Relative Index 1.4 % (1.5-5.0)
[2022-07-29 13:52] LABS: Gamma Glutamyl Transpeptidase 173 U/L (15-73); Lactate Dehydrogenase 302 U/L (120-246)
== END ==
PROVIDERS: PCP Family Medicine; Referring Provider Physician Assistant; Visit Provider Physician Assistant
DX: R53.1 Weakness (principal); R53.83 Other fatigue; R74.8 Abnormal levels of other serum enzymes; Z82.0 Family history of epilepsy and other diseases of the nervous system
CPT/HCPCS: 36415; 80053; 82550; 82553; 82607; 82728; 82977; 83540; 83550; 83615; 84443; 85025

== ENCOUNTER 2023-02-01 13:09 | Emergency (ER) | payer OTHER, MEDICAID, SELFPAY ==
[2023-02-01 13:33] VITALS: BP 123/80; PULSE 64; RESP 16; TEMP 36.3; O2SAT 99; BMI 23.7
--- NOTE | 2023-02-01 15:38 | PC.NURSE ---
Increase pain in right great toe, reports no known injury, mild redness and swelling noted. Patient concerned of infection. Do not appreticate any discharge from nail bed or warmth. Patient nail removed from ingrown toenail years ago and nail never grew back correctly
--- NOTE | 2023-02-01 15:40 | ED_ITS ---
HPI - Skin/Abscess/Foreign Bdy <Cheyenne Carlos PA-C - Last Filed: 02/01/23 15:47> General Chief complaint: Skin/Abscess/Foreign Body Stated complaint: R toenail pain Time Seen by Provider: 02/01/23 15:28 Source: patient Mode of arrival: Ambulatory History of Present Illness HPI narrative: 33-year-old male presents to the ED with a painful right big toenail. Patient states that he had the toenail removed about 2 years ago, and that since then it has never grown in normally. Patient states that the toenail has been bothering him for the past few days. Patient denies fever, chills or any discharge from the toe. Patient denies numbness, tingling, weakness. Patient was seen in the walk-in clinic and given a referral to non acoustic operator. However, patient presented to the ED since he says his insurance takes a long time to improve the referral. Related Data Previous Rx's Medication Instructions Recorded sulfamethoxazole 800 1 tab PO BID 7 days #14 tabs 02/01/23 mg-trimethoprim 160 mg tablet (Bactrim DS) Allergies Allergy/AdvReac Type Severity Reaction Status Date / Time No Known Drug Allergies Allergy Verified 02/01/23 12:41 Review of Systems <Cheyenne Carlos PA-C - Last Filed: 02/01/23 15:47> Review of Systems ROS Unobtainable: All systems reviewed & are unremarkable except as noted in HPI and below Constitutional Constitutional: Denies chills, Denies fatigue, Denies fever(s), Denies frequent falls, Denies lethargy and Denies weakness Eyes Eyes: Denies change in vision, Denies eye discharge, Denies irritation and Denies loss of vision ENT Ears, Nose, Mouth, and Throat: Denies change in voice, Denies dizziness, Denies neck pain, Denies sore throat and Denies throat swelling Cardiovascular Cardiovascular: Denies chest pain, Denies irregular heart rhythm, Denies lightheadedness, Denies palpitations, Denies dyspnea, Denies dyspnea on exertion and Denies orthopnea Respiratory Respiratory: Denies cough, Denies dyspnea, Denies dyspnea on exertion and Denies wheezing Gastrointestinal Gastrointestinal: Denies abdominal pain, Denies change in bowel habits, Denies diarrhea, Denies nausea and Denies vomiting Genitourinary Genitourinary: Denies hematuria, Denies flank pain, Denies urinary incontinence and Denies urinary urgency Musculoskeletal Musculoskeletal: Denies back pain, Denies muscle weakness, Denies neck pain, Denies numbness and Denies tingling Comments: Right big toenail pain Integumentary/Breasts Skin/Breast: Denies pruritus, Denies erythema, Denies rash and Denies wounds Neurologic Neurologic: Denies behavioral changes, Denies confusion, Denies dizziness, Denies frequent falls, Denies loss of vision, Denies numbness, Denies tingling and Denies weakness Psychiatric Psychiatric: Denies anxiety, Denies behavioral changes, Denies confusion, Denies depression, Denies homicidal ideation and Denies suicidal ideation Endocrine Endocrine: Denies fatigue, Denies flushing and Denies palpitations Hematologic/Lymphatic Hematologic/Lymphatic: Denies easy bruising Allergic/Immunologic Allergic/Immunologic: Denies urticaria, Denies throat swelling and Denies wheezing Patient History <Cheyenne Carlos PA-C - Last Filed: 02/01/23 15:47> Medical History Chronic back pain (2003) Healthy adult Shoulder pain (2004) Surgical History No history of previous surgery (04/04/17) Family History Father Age: 56 H/O knee surgery Mother Stomach problems Chest problem Social History Smoking Status: Never smoker Smoking Status: Never smoker alcohol intake frequency: a few times a week Substance Use Type: does not use Exam <Cheyenne Carlos PA-C - Last Filed: 02/01/23 15:47> Narrative Exam Narrative: Const General:?cooperative, healthy appearing and comfortable [facility] Head:?normal to inspection Ears:?hearing grossly normal bilaterally Nose:?external nose normal Face and sinus:?normal facial exam and sinuses nontender Mouth:?oral mucosae normal Throat:?posterior oropharynx normal Eyes General:?appearance normal, both eyes and all related structures Neck Neck:?normal visual inspection and no lymphadenopathy noted Resp Effort & Inspection:?normal respiratory effort Auscultation:?clear to auscultation bilaterally Cardio Rate:?regular rate Rhythm:?regular rhythm Integumentary Right big toenail appears to be yellow, thickened. It is firmly in place. No overt signs of infection. Patient is neurovascularly intact. Neuro General:?patient alert, patient awake and patient oriented x3 Initial Vital Signs Initial Vital Signs: Vital Signs Temperature 97.3 F L 02/01/23 13:33 Pulse Rate 64 02/01/23 13:33 Respiratory Rate 16 02/01/23 13:33 Blood Pressure 123/80 02/01/23 13:33 Pulse Oximetry 99 02/01/23 13:33 Oxygen Delivery Method Room Air 02/01/23 13:33 <DO Raven Perry Last Filed: 02/01/23 19:24> Initial Vital Signs Initial Vital Signs: Vital Signs Temperature 97.3 F L 02/01/23 13:33 Pulse Rate 64 02/01/23 13:33 Respiratory Rate 16 02/01/23 13:33 Blood Pressure 123/80 02/01/23 13:33 Pulse Oximetry 99 02/01/23 13:33 Oxygen Delivery Method Room Air 02/01/23 13:33 Course <SHAWNA Trinidad Last Filed: 02/01/23 15:47> Vital Signs Vital signs: Vital Signs - 8 hr 02/01/23 13:33 Temperature 97.3 F L Pulse Rate 64 Respiratory Rate 16 Blood Pressure 123/80 Pulse Oximetry 99 Oxygen Delivery Method Room Air <DO Raven Perry Last Filed: 02/01/23 19:24> Vital Signs Vital signs: Vital Signs - 8 hr 02/01/23 13:33 Temperature 97.3 F L Pulse Rate 64 Respiratory Rate 16 Blood Pressure 123/80 Pulse Oximetry 99 Oxygen Delivery Method Room Air MDM - Skin/Abscess/Foreign Bdy <SHAWNA Trinidad Last Filed: 02/01/23 15:47> MDM Narrative Medical decision making narrative: 33-year-old male presents to the ED with a painful right big toenail. Patient states that he had the toenail removed about 2 years ago, and that since then it has never grown in normally. No overt signs of infection. The toenail appears thickened and yellow, however is firmly in place. No indication for removal or further procedures today. Patient was prescribed an antibiotic to take until he is able to see the non acoustic operator. ED return precautions were discussed with patient. Patient verbalized understanding. Medical records reviewed: Yes Discharge Plan Departure Patient Disposition: Home Clinical Impression: Pain around toenail Instructions: Foot Care: Toenails Activity Restrictions/Additional Instructions: You were evaluated in the ED today for toenail pain. Your toenail does seem to be intact and there is no indication to remove it today. There are no overt signs of infection, however you are being prescribed an antibiotic until you see a non acoustic operator. Return to the ED if your worsening symptoms, persistent vomiting. Prescriptions: New sulfamethoxazole-trimethoprim [Bactrim DS] 800-160 mg tablet 1 tab PO BID 7 Days Qty: 14 0RF Referrals: Chantelle Hall MD [Primary Care Provider] - Stand Alone Forms: Patient Portal/API <Dione Myers DO - Last Filed: 02/01/23 19:24> Cosign ED Attending Jayant Attestation: I was immediately available in the department for consultation. Documentation has been reviewed.
== END 2023-02-01 15:43 | disposition home or self-care (01) ==
PROVIDERS: Emergency Provider Student in an Organized Health Care Education/Training Program; PCP Family Medicine
DX: M79.674 Pain in right toe(s) (principal)
CPT/HCPCS: 99281